=== PATIENT | female | born 1940 | race Caucasian/White ===

== ENCOUNTER 2016-10-10 13:57 | Observation (INO) | payer BC ==
[~2016-10-10] VITALS: Ht 149.9 cm; Wt 60.8 kg
[~2016-10-10 13:57] MED LIST: ACET325T21 PO; AMLO5TAB2 PO; CETI10TA16 PO; LOSA50TA6 PO; MECL12.52 PO; METO25TA4 PO; NITR0.4T22 SL; PANT40TA3 PO
[2016-10-10 16:09] VITALS: BP 135/66
[2016-10-10] MEDS ORDERED: ACETAMINOPHEN 325 MG TABLET. PO PRN (16:30)
[2016-10-10] MEDS ORDERED: MAGNESIUM HYDROXIDE 2,400 MG/30 ML ORAL.SUSP. PO PRN (16:30)
[2016-10-10] MEDS: IV DEXTROSE 5 %-0.45 % NACL 1,000 ML IV SCH (17:17)
[2016-10-10 18:09] LABS: BASO % 0 % (0-3); EOS % 0 % (0-3); HEMOGLOBIN 11.1 g/dL (12.0-15.5); LYMPH # 1.4 x10^3/uL (1.0-4.8); LYMPH % 11 % (24-48); MEAN CORPUSCULAR HEMOGLOBIN 31 pg (25-35); MEAN CORPUSCULAR HGB CONC 33 g/dL (31-37); MEAN CORPUSCULAR VOLUME 94 fL (79-100); MONO % 4 % (0-9); NEUT % 86 % (31-73); PLATELET COUNT 211 x10^3/uL (140-400); RED BLOOD COUNT 3.63 x10^6/uL (3.50-5.40); RED CELL DISTRIBUTION WIDTH 13.4 % (11.5-14.5); WHITE BLOOD COUNT 13.4 x10^3/uL (4.0-11.0)
[2016-10-10 18:31] LABS: PLT ESTIMATE ADEQUATE (ADEQUATE)
[2016-10-10 18:37] LABS: ALBUMIN 2.5 g/dL (3.4-5.0); ALBUMIN/GLOBULIN RATIO 0.7 (1.0-1.7); CALCIUM 9.1 mg/dL (8.5-10.1); CREATININE 1.7 mg/dL (0.6-1.0); GFR 29.4; POTASSIUM 3.4 mmol/L (3.5-5.1); TOTAL BILIRUBIN 0.5 mg/dL (0.2-1.0); TOTAL PROTEIN 6.3 g/dL (6.4-8.2)
[2016-10-10 19:00] VITALS: BP 129/61
[2016-10-10] MEDS ORDERED: PNEUMOCOCCAL VAX SCREEN BY RX. MC ONE (19:30)
[2016-10-10 20:10] LABS: BILIRUBIN,URINE NEGATIVE (NEG); GLUCOSE,URINE NEGATIVE (NEG); NITRITE,URINE NEGATIVE (NEG); PH,URINE 5.5; PROTEIN,URINE NEGATIVE (NEG-TRACE); UROBILINOGEN,URINE 0.2 mg/dL (0.2 mg/dL)
[2016-10-10 20:20] LABS: BACTERIA,URINE FEW /HPF (0-FEW); RBC,URINE 0 /HPF (0-2); SQUAMOUS EPITHELIAL CELL,UR FEW /LPF
[2016-10-10] MEDS: ACETAMINOPHEN 325 MG TABLET. PO PRN (21:15)
[2016-10-10] MEDS: METOPROLOL TART IMMED RELEASE 25 MG TABLET. PO SCH (21:15)
[2016-10-10 23:00] VITALS: BP 100/48
[2016-10-11 02:37] VITALS: BP 111/56
[2016-10-11] MEDS: IV DEXTROSE 5 %-0.45 % NACL 1,000 ML IV SCH ×2 (04:53→20:53)
[2016-10-11 06:04] LABS: BASO % 0 % (0-3); EOS % 1 % (0-3); HEMATOCRIT 32.9 % (36.0-47.0); HEMOGLOBIN 10.8 g/dL (12.0-15.5); LYMPH # 1.9 x10^3/uL (1.0-4.8); LYMPH % 19 % (24-48); MEAN CORPUSCULAR HEMOGLOBIN 31 pg (25-35); MEAN CORPUSCULAR HGB CONC 33 g/dL (31-37); MEAN CORPUSCULAR VOLUME 94 fL (79-100); MONO % 4 % (0-9); NEUT % 77 % (31-73); PLATELET COUNT 226 x10^3/uL (140-400); RED BLOOD COUNT 3.51 x10^6/uL (3.50-5.40); RED CELL DISTRIBUTION WIDTH 13.3 % (11.5-14.5); WHITE BLOOD COUNT 10.1 x10^3/uL (4.0-11.0)
[2016-10-11 06:19] LABS: CREATININE 1.4 mg/dL (0.6-1.0); GFR 36.8; POTASSIUM 3.2 mmol/L (3.5-5.1)
[2016-10-11 07:00] VITALS: BP 115/50
[2016-10-11] MEDS: METOPROLOL TART IMMED RELEASE 25 MG TABLET. PO SCH ×2 (07:51→20:52)
--- NOTE | 2016-10-11 09:12 | RAD ---
Indication weakness and fever. Protocol study. A single view of the chest was obtained and is compared to an examination 09/21/2014. There is mild cardiomegaly similar to the previous exam. There is no congestive heart failure. There is no focal infiltrate. Some minimal atelectasis is seen at the right lung base. There is no pleural fluid or pneumothorax. IMPRESSION: No acute or focal process in the chest. No significant change
--- NOTE | 2016-10-11 10:08 | PDOC2 ---
IM Consult Referring physician Dr Estrella for fever, weakness Date of Admission DATE: 10/11/16 TIME: 10:05 Chief Complaint Chief Complaint 76 yo wf admitted for h/o fever, n/v, weakness, not feeling well. Also all jts in body are hurting says. No fever, here, did have leukocytosis, cxr neg, no urinary sy. Problems: Past Medical History Cardiovascular: CAD CENTRAL NERVOUS SYSTEM: CVA, Other GI: GERD Heme/Onc: Anemia NOS Rheumatologic: Rheumatoid arthritis Renal/: Other Past Surgical History Past Surgical History: Cataract Removal, Hysterectomy, Other Past Social History PSH denies smoking, etoh or drugs Review of Symptoms Review of Symptoms General ROS: positive for - Psychological ROS: negative Ophthalmic ROS: negative ENT ROS: negative Allergy and Immunology ROS: negative Hematology and Lymphatic: negative Endocrine ROS: negative Respiratory ROS: no cold, does have cough, no dyspnea. Cardiovascular ROS: no chest pain or dyspnea on exertion Gastrointestinal ROS: no abdominal pain, change in bowel habits, or black or bloody stools Genito-Urinary ROS: no dysuria, trouble voiding, or hematuria Musculoskeletal ROS: no pain Neurological ROS: negative Dermatological ROS: no rash Medications Current Medications Acetaminophen (Tylenol) 325 mg PRN Q4HRS PRN PO MILD PAIN / TEMP; Start at 16:30 Acetaminophen (Tylenol) 650 mg PRN Q4HRS PRN PO MILD PAIN / TEMP Last administered on 10/10/16 21:15; Start 10/10/16 at 16:30 Dextrose/Sodium Chloride 1,000 ml @ 75 mls/hr [id number] IV Last administered on 10/11/16 04:53; Start 10/10/16 at 16:30 Magnesium Hydroxide (Milk Of Magnesia) 2,400 mg PRN DAILY PRN PO CONSTIPATION; Start 10/10/16 at 16:30 Metoprolol Tartrate (Lopressor) 25 mg BID PO Last administered on 10/11/16 07: 51; Start 10/10/16 at 21:00 Pneumococcal Polyvalent Vaccine (Do NOT chart on this placeholder) 0.5 each 1X ONCE [facility] ; Start 10/10/16 at 19:30; Stop 10/10/16 at 19:31; Status UNV Allergy Allergies Coded Allergies Type Severity Reaction Last Updated Verified Cephalosporins Allergy Intermediate Hives 10/22/13 Yes Penicillins Allergy Intermediate 10/22/13 No Sulfa (Sulfonamide Antibiotics) Allergy Intermediate 10/22/13 No atorvastatin Allergy Intermediate 10/22/13 No cephalexin Allergy Intermediate 10/22/13 Yes diltiazem Allergy Intermediate 10/22/13 No doxycycline Allergy Intermediate 10/22/13 No erythromycin base Allergy Intermediate 10/22/13 No ezetimibe Allergy Intermediate 10/22/13 No levofloxacin Allergy Intermediate 10/22/13 No lisinopril Allergy Intermediate 10/22/13 Yes olmesartan Allergy Intermediate 10/22/13 Yes pantoprazole Allergy Intermediate 09/21/14 No Physical Exam Physical Exam General appearance - alert,well appearing, and in no distress and oriented to person, place, and time Mental Status - alert, oriented to person, place, and time, affect appropriate to mood Head - normal Chest - clear to auscultation, no wheezes, rales or rhonchi, symmetric air entry Heart - S1 and S2 normal Abdomen - soft, nontender, nondistended, no masses or organomegaly Neurological - alert and oriented Musculoskeletal - no muscular tenderness noted Extremities - no pedal edema Skin - warm and dry Labs Laboratory Tests Test 10/10/16 17:45 10/10/16 19:57 10/11/16 05:08 White Blood Count 13.4 x10^3/uL (4.0-11.0) 10.1 x10^3/uL (4.0-11.0) Red Blood Count 3.63 x10^6/uL (3.50-5.40) 3.51 x10^6/uL (3.50-5.40) Hemoglobin 11.1 g/dL (12.0-15.5) 10.8 g/dL (12.0-15.5) Hematocrit 34.0 % (36.0-47.0) 32.9 % (36.0-47.0) Mean Corpuscular Volume 94 fL (79-100) 94 fL (79-100) Mean Corpuscular Hemoglobin 31 pg (25-35) 31 pg (25-35) Mean Corpuscular Hemoglobin Concent 33 g/dL (31-37) 33 g/dL (31-37) Red Cell Distribution Width 13.4 % (11.5-14.5) 13.3 % (11.5-14.5) Platelet Count 211 x10^3/uL (140-400) 226 x10^3/uL (140-400) Neutrophils (%) (Auto) 86 % (31-73) 77 % (31-73) Lymphocytes (%) (Auto) 11 % (24-48) 19 % (24-48) Monocytes (%) (Auto) 4 % (0-9) 4 % (0-9) Eosinophils (%) (Auto) 0 % (0-3) 1 % (0-3) Basophils (%) (Auto) 0 % (0-3) 0 % (0-3) Neutrophils # (Auto) 11.5 x10^3uL (1.8-7.7) 7.7 x10^3uL (1.8-7.7) Lymphocytes # (Auto) 1.4 x10^3/uL (1.0-4.8) 1.9 x10^3/uL (1.0-4.8) Monocytes # (Auto) 0.5 x10^3/uL (0.0-1.1) 0.4 x10^3/uL (0.0-1.1) Eosinophils # (Auto) 0.0 x10^3/uL (0.0-0.7) 0.1 x10^3/uL (0.0-0.7) Basophils # (Auto) 0.0 x10^3/uL (0.0-0.2) 0.0 x10^3/uL (0.0-0.2) Segmented Neutrophils % 86 % (35-66) Lymphocytes % 11 % (24-48) Monocytes % 3 % (0-10) Platelet Estimate Adequate (ADEQUATE) Sodium Level 130 mmol/L (136-145) 136 mmol/L (136-145) Potassium Level 3.4 mmol/L (3.5-5.1) 3.2 mmol/L (3.5-5.1) Chloride Level 97 mmol/L (98-107) 101 mmol/L (98-107) Carbon Dioxide Level 24 mmol/L (21-32) 26 mmol/L (21-32) Anion Gap 9 (6-14) 9 (6-14) Blood Urea Nitrogen 22 mg/dL (7-20) 22 mg/dL (7-20) Creatinine 1.7 mg/dL (0.6-1.0) 1.4 mg/dL (0.6-1.0) Estimated GFR (Cockcroft-Gault) 29.4 36.8 BUN/Creatinine Ratio 13 (6-20) Glucose Level 137 mg/dL (70-99) 92 mg/dL (70-99) Calcium Level 9.1 mg/dL (8.5-10.1) 9.0 mg/dL (8.5-10.1) Total Bilirubin 0.5 mg/dL (0.2-1.0) Aspartate Amino Transf (AST/SGOT) 8 U/L (15-37) Alanine Aminotransferase (ALT/SGPT) 13 U/L (14-59) Alkaline Phosphatase 130 U/L (46-116) Total Protein 6.3 g/dL (6.4-8.2) Albumin 2.5 g/dL (3.4-5.0) Albumin/Globulin Ratio 0.7 (1.0-1.7) Urine Collection Type Void Urine Color Yellow Urine Clarity Clear Urine pH 5.5 Urine Specific [place] 1.010 Urine Protein Negative mg/dL (NEG-TRACE) Urine Glucose (UA) Negative mg/dL (NEG) Urine Ketones (Stick) Negative mg/dL (NEG) Urine Blood Negative (NEG) Urine Nitrite Negative (NEG) Urine Bilirubin Negative (NEG) Urine Urobilinogen Dipstick 0.2 mg/dL (0.2 mg/dL) Urine Leukocyte Esterase Moderate (NEG) Urine RBC 0 /HPF (0-2) Urine WBC 11-20 /HPF (0-4) Urine Squamous Epithelial Cells Few /LPF Urine Bacteria Few /HPF (0-FEW) Urine Hyaline Casts Occasional /HPF Urine Mucus Slight /LPF Laboratory Tests Test 10/10/16 17:45 10/10/16 19:57 10/11/16 05:08 White Blood Count 13.4 x10^3/uL (4.0-11.0) 10.1 x10^3/uL (4.0-11.0) Red Blood Count 3.63 x10^6/uL (3.50-5.40) 3.51 x10^6/uL (3.50-5.40) Hemoglobin 11.1 g/dL (12.0-15.5) 10.8 g/dL (12.0-15.5) Hematocrit 34.0 % (36.0-47.0) 32.9 % (36.0-47.0) Mean Corpuscular Volume 94 fL (79-100) 94 fL (79-100) Mean Corpuscular Hemoglobin 31 pg (25-35) 31 pg (25-35) Mean Corpuscular Hemoglobin Concent 33 g/dL (31-37) 33 g/dL (31-37) Red Cell Distribution Width 13.4 % (11.5-14.5) 13.3 % (11.5-14.5) Platelet Count 211 x10^3/uL (140-400) 226 x10^3/uL (140-400) Neutrophils (%) (Auto) 86 % (31-73) 77 % (31-73) Lymphocytes (%) (Auto) 11 % (24-48) 19 % (24-48) Monocytes (%) (Auto) 4 % (0-9) 4 % (0-9) Eosinophils (%) (Auto) 0 % (0-3) 1 % (0-3) Basophils (%) (Auto) 0 % (0-3) 0 % (0-3) Neutrophils # (Auto) 11.5 x10^3uL (1.8-7.7) 7.7 x10^3uL (1.8-7.7) Lymphocytes # (Auto) 1.4 x10^3/uL (1.0-4.8) 1.9 x10^3/uL (1.0-4.8) Monocytes # (Auto) 0.5 x10^3/uL (0.0-1.1) 0.4 x10^3/uL (0.0-1.1) Eosinophils # (Auto) 0.0 x10^3/uL (0.0-0.7) 0.1 x10^3/uL (0.0-0.7) Basophils # (Auto) 0.0 x10^3/uL (0.0-0.2) 0.0 x10^3/uL (0.0-0.2) Segmented Neutrophils % 86 % (35-66) Lymphocytes % 11 % (24-48) Monocytes % 3 % (0-10) Platelet Estimate Adequate (ADEQUATE) Sodium Level 130 mmol/L (136-145) 136 mmol/L (136-145) Potassium Level 3.4 mmol/L (3.5-5.1) 3.2 mmol/L (3.5-5.1) Chloride Level 97 mmol/L (98-107) 101 mmol/L (98-107) Carbon Dioxide Level 24 mmol/L (21-32) 26 mmol/L (21-32) Anion Gap 9 (6-14) 9 (6-14) Blood Urea Nitrogen 22 mg/dL (7-20) 22 mg/dL (7-20) Creatinine 1.7 mg/dL (0.6-1.0) 1.4 mg/dL (0.6-1.0) Estimated GFR (Cockcroft-Gault) 29.4 36.8 BUN/Creatinine Ratio 13 (6-20) Glucose Level 137 mg/dL (70-99) 92 mg/dL (70-99) Calcium Level 9.1 mg/dL (8.5-10.1) 9.0 mg/dL (8.5-10.1) Total Bilirubin 0.5 mg/dL (0.2-1.0) Aspartate Amino Transf (AST/SGOT) 8 U/L (15-37) Alanine Aminotransferase (ALT/SGPT) 13 U/L (14-59) Alkaline Phosphatase 130 U/L (46-116) Total Protein 6.3 g/dL (6.4-8.2) Albumin 2.5 g/dL (3.4-5.0) Albumin/Globulin Ratio 0.7 (1.0-1.7) Urine Collection Type Void Urine Color Yellow Urine Clarity Clear Urine pH 5.5 Urine Specific [place] 1.010 Urine Protein Negative mg/dL (NEG-TRACE) Urine Glucose (UA) Negative mg/dL (NEG) Urine Ketones (Stick) Negative mg/dL (NEG) Urine Blood Negative (NEG) Urine Nitrite Negative (NEG) Urine Bilirubin Negative (NEG) Urine Urobilinogen Dipstick 0.2 mg/dL (0.2 mg/dL) Urine Leukocyte Esterase Moderate (NEG) Urine RBC 0 /HPF (0-2) Urine WBC 11-20 /HPF (0-4) Urine Squamous Epithelial Cells Few /LPF Urine Bacteria Few /HPF (0-FEW) Urine Hyaline Casts Occasional /HPF Urine Mucus Slight /LPF Vitals Vital Signs Date Time Temp Pulse Resp B/P (MAP) Pulse Ox O2 Delivery O2 Flow Rate FiO2 10/11/16 08:00 Room Air 10/11/16 07:51 85 115/50 10/11/16 07:00 97.9 19 95 97.9 Assessment Assessment ? Viral illness Bronchitis Body ache Fever at home CAD Multiple antibiotic allergies Plan Plan no antibiotics supportive care procalcitonin check cultures ALLAN HARLEY MD Oct 11, 2016 10:08
[2016-10-11 11:00] VITALS: BP 156/64
[2016-10-11] MEDS ORDERED: LACTULOSE 20 GM/30 ML SOLUTION. PO ONE ×2 (12:00→14:00)
--- NOTE | 2016-10-11 12:25 | PDOC ---
Provider Note Provider Note history and physical dictated # [id number] MIRI MADRIGAL MD Oct 11, 2016 12:25
[2016-10-11] MEDS ORDERED: POTASSIUM CHLORIDE 20 MEQ TABLET.ER. PO ONE (13:00)
[2016-10-11] MEDS: LOSARTAN POTASSIUM 50 MG TABLET. PO SCH (13:04)
[2016-10-11] MEDS: ACETAMINOPHEN 325 MG TABLET. PO PRN ×2 (13:43→20:54)
--- NOTE | 2016-10-11 14:28 | EKG ---
[facility] [address] [place] [address] Test Date: 2016-10-11 Test Time: 08:40:43 Pat Name: KANNAN BALDWIN Department: Room: 506 1 Gender: F [employer] Manager: MONICA : 1940 Requested By: MIRI MADRIGAL Order Number: [id number] Reading MD: Measurements Intervals [place] Rate: 69 P: 0 OR: 156 QRS: -7 QRSD: 86 T: 17 QT: 400 QTc: 430 Interpretive Statements SINUS RHYTHM LEFTWARD AXIS QRS(T) CONTOUR ABNORMALITY CONSIDER ANTEROLATERAL MYOCARDIAL DAMAGE ST & T ABNORMALITY, CONSIDER ANTEROSEPTAL ISCHEMIA OR LEFT VENTRICULAR STRAIN ABNORMAL ECG RI6.01 Compared to ECG 09/21/2014 20:40:56 T-wave abnormality now present Possible ischemia now present Myocardial infarct finding no longer present
[2016-10-11 15:00] VITALS: BP 105/61
--- NOTE | 2016-10-11 15:30 | RAD ---
Indication persistent cough. Noncontrast imaging through the chest was performed. Note is made of a previous examination almost 11 years ago. There is a low-density" mass" in the area of the dottie hepatis. This probably represents the portal vein itself. A mass at the head of the pancreas is felt less likely but is not entirely excluded on the basis of this exam. A contrast examination of the abdomen should be considered. There are some benign-appearing calcifications adjacent to the gallbladder similar to the prior study. Acute finding in the upper abdomen is not seen. No acute or significant finding is seen mediastinum. There is a small hiatus hernia. There is volume loss at the lung bases likely reflecting pleural-parenchymal scarring. Pneumonia is felt much less likely. A definite consolidated pneumonia in either lung is not seen. There is no dominant soft tissue mass in the chest. An acute finding is not apparent. IMPRESSION: Volume loss at the lung bases likely reflecting atelectasis or pleural-parenchymal scarring. An inflammatory component at the lung bases is not entirely excluded but is felt much less likely. Acute finding in the chest is not definitely seen. Probably prominent portal vein in the area of the portal hepatus. A low-density mass associated with the head of the pancreas is not entirely excluded. A CT examination of the abdomen, with IV contrast, should be considered PQRS Compliance Statement: One or more of the following individualized dose reduction techniques were utilized for this examination: 1. Automated exposure control 2. Adjustment of the mA and/or kV according to patient size 3. Use of iterative reconstruction technique
[2016-10-11 19:00] VITALS: BP 123/57
--- NOTE | 2016-10-11 20:17 | HP ---
ADMIT DATE: 10/10/2016 ROOM NUMBER: [id number]. HISTORY OF PRESENT ILLNESS: The patient is a 76-year-old white female with history of hypertension, coronary artery disease and chronic kidney disease stage 3, who was seen in the office on 10/10/2016 with a 3-day history of bilateral ankle, knee, hip, hands and shoulder pain as well as lower back and neck pain and fever of 100.8 the night before, had occasional dry cough. Denied any dysuria or diarrhea. She vomited once last Saturday and also on Saturday. She had a decreased appetite. Her last bowel movement was like 5 days prior to admission. She denied any chills. She had a sore throat yesterday, which has improved. PHYSICAL EXAMINATION: VITAL SIGNS: The temperature is 97.5 degrees, apical pulse 78, respiratory rate 19, blood pressure 156/64, oxygen saturation 96% on room air. HEENT: Eyes: Gaze is conjugate. Extraocular muscles are intact. Mouth: Tongue is midline. Throat yesterday in the office on examination was negative, was not red. NECK: Today, there is no cervical lymphadenopathy. HEART: Reveals an S1 and S2. There is no S3 or murmur. LUNGS: Clear. She had a frequent dry cough. ABDOMEN: Soft and nontender. EXTREMITIES: Lower extremities without edema. SKIN: No rashes. LABORATORY DATA: The white count was elevated at 13.4 yesterday, today it is 10.1; hemoglobin 11.1 yesterday; platelet count was 211,000. She had 86 polys and 11 lymphocytes yesterday; today, it is 77 polys and 19 lymphocytes. Her sodium is low at 130 yesterday, it was normal today at 136; potassium low at 3.4 yesterday, 3.2 today; chloride 97; total CO2 was 24; BUN 22 and creatinine 1.7 yesterday, today it is 22 and 1.4 respectively with a blood sugar of 137 and 92 today, alkaline phosphatase 130, albumin 2.5, procalcitonin was increased at 5.99. Urinalysis showed 11-20 white cells and no red blood cells. IMAGING DATA: She had a chest x-ray that showed no acute abnormality. The electrocardiogram was ordered but apparently not done. ASSESSMENT: 1. Generalized weakness. 2. Dehydration. 3. Acute kidney injury on top of chronic kidney disease stage 3, most likely secondary to dehydration. 4. Hyponatremia, which is resolved. 5. Hypokalemia. 6. Leukocytosis. 7. Arthralgias. 8. Acute bronchitis, rule out pneumonia. 9. Hypertension. 10. Coronary artery disease. 11. Pyuria. PLAN: Plan at this time is to continue with her IV fluids, but we will decrease rate to mL an hour. We will advance her diet from liquids to soft solids. We will get a CAT scan of the chest without IV contrast to rule out pneumonia. She also has pyuria, which can be added to the diagnosis and wait for the urine culture results. She has been seen by the Infectious Disease doctor who recommend holding off on antibiotics for the time being due to her multiple antibiotic allergies. She does feel a little bit better today. We will restart her losartan, but will hold off on the amlodipine and we will continue the metoprolol. Recheck her labs again tomorrow and wait for blood culture results and also urine culture results, and we will order SCDs for deep vein thrombosis prophylaxis. EKG was ordered. We will get a CAT scan of the chest without contrast as mentioned to rule out pneumonia. Physical and occupational therapy has also been ordered. MIRI MADRIGAL MD DR: NICOLE/alexandre JOB#: [id number] / [id number]
[2016-10-11 22:52] VITALS: BP 111/58
--- NOTE | 2016-10-12 02:23 | ACF ---
Admission Forms Criteria HYPONATREMIA; HYPERNATREMIA; HYPOKALEMIA; HYPERKALEMIA; HYPOCALCEMIA; HYPERCALCEMIA Clinical Indications for Inpatient Care (Place 'X' for any and all applicable criteria): Ongoing inpatient care may be indicated for ANY ONE of the following [G](1)(2)(3 )(5): [X]I. Hyponatremia with ANY ONE of the following: [X]a) Sodium less than 130 mEq/L (mmol/L) (new) (6)(22) [ ]b) Sodium less than 135 mEq/L (mmol/L) with ANY ONE of the following: [ ]i) Severe medical etiology requiring inpatient management (eg, heart failure, hypovolemia) [ ]ii) Altered mental status [ ]iii) Seizures [ ]II. Hypernatremia with ANY ONE of the following: [ ]a) Sodium greater than 155 mEq/L (mmol/L) [ ]b) Sodium greater than 150 mEq/L (mmol/L) with ANY ONE of the following: [ ] i) Altered mental status [ ]ii) Seizures [ ]iii) Severe medical etiology (eg, hypovolemia, diabetes insipidus) [ ]iv) Severe weakness [ ]v) Severe medical etiology (eg, hemolysis, infection, drug overdose) [ ]III. Hypokalemia with ANY ONE of the following: [ ]a) Potassium less than 2.5 mEq/L (mmol/L) despite outpatient and emergency treatment [ ]b) Potassium less than 3.0 mEq/L (mmol/L) with ANY ONE of the following: [ ]i) Weakness [ ]ii) Cardiac abnormality (eg, arrhythmia, conduction disturbance) [ ]iii) Cardiac ischemia [ ]iv) Ileus [ ]v) Ongoing medical cause requiring inpatient management. ( e.g., acute renal wasting, SIADH) [ ]vi) Other severe symptoms [ ] IV. Hyperkalemia with ANY ONE of the following: [ ]a) Potassium greater than 6.5 mEq/L (mmol/L) [ ]b) Potassium greater than 5 mEq/L (mmol/L) with ANY ONE of the following: [ ]i) Severe ECG findings [H] [ ]ii) Acute worsening of renal failure (creatinine greater than 2.5 mg/dL (221 micromoles/L) or significant elevation for age and size) [ ] V. Hypocalcemia with ANY ONE of the following: [ ]a) Calcium less than 7 mg/dL (1.75 mmol/L) despite outpatient and emergency treatment(19) [ ]b) Calcium less than 8 mg/dL (2 mmol/L) with significant symptoms or findings; examples include: [ ]i) Cardiac abnormality (eg, arrhythmia or conduction disturbance) [ ]ii) Altered mental status [ ]iii) Seizures [ ]iv) Breathing difficulty [ ]v) Muscle spasms [ ]. Hypercalcemia with ANY ONE of the following: [ ]a) Calcium greater than 14 mg/dL (3.5 mmol/L) [ ]b) Calcium greater than 12 mg/dL (3 mmol/L) with ANY ONE of the following: [ ]i) Significant dehydration or hypovolemia as indicated by ANY ONE of the following(2): [ ]1. Clinically significant dehydration as indicated by ANY ONE of the following: [ ]A. Acute loss of weight from baseline (5% of body weight in adults, 9% in pediatric patients) [ ]B. Hemodynamic instability [ ]C. Acute renal failure [ ]D. Serum sodium greater than 150 mEq/L (mmol/L) [ ]2) Dehydration that is persistent indicated by ALL of the following: [ ]A. Oral rehydration therapy not tolerated or insufficient to adequately correct dehydration [ ]B. Appropriate intravenous treatment (eg, fluids ) does not readily correct dehydration ie, after 12 to 24 hours of treatment) [ ]ii) Significant symptoms or findings; examples include: [ ]1) Altered mental status [ ]2) Cardiac abnormality (eg, arrhythmia, conduction disturbance) [ ]3) Cardiac abnormality (eg, arrhythmia, conduction disturbance) The original [facility] content created by [facility] has been revised. The portions of the content which have been revised are identified through the use of italic text or in bold, and [facility] has neither reviewed nor approved the modified material. All other unmodified content is copyright [facility] [employer] Please see references footnoted in the original [facility] [employer] edition 2016 Admission Criteria Met?: Yes SARA HAIRSTON Oct 12, 2016 02:23
[2016-10-12 03:00] VITALS: BP 114/56
[2016-10-12 04:25] LABS: BASO % 1 % (0-3); EOS % 2 % (0-3); HEMATOCRIT 29.8 % (36.0-47.0); HEMOGLOBIN 9.9 g/dL (12.0-15.5); LYMPH # 1.9 x10^3/uL (1.0-4.8); LYMPH % 37 % (24-48); MEAN CORPUSCULAR HEMOGLOBIN 32 pg (25-35); MEAN CORPUSCULAR HGB CONC 33 g/dL (31-37); MEAN CORPUSCULAR VOLUME 95 fL (79-100); MONO % 6 % (0-9); NEUT % 54 % (31-73); PLATELET COUNT 229 x10^3/uL (140-400); RED BLOOD COUNT 3.13 x10^6/uL (3.50-5.40); RED CELL DISTRIBUTION WIDTH 13.9 % (11.5-14.5); WHITE BLOOD COUNT 5.2 x10^3/uL (4.0-11.0)
[2016-10-12 04:40] LABS: CALCIUM 8.6 mg/dL (8.5-10.1); CREATININE 1.3 mg/dL (0.6-1.0); POTASSIUM 4.2 mmol/L (3.5-5.1)
[2016-10-12] MEDS: ACETAMINOPHEN 325 MG TABLET. PO PRN ×2 (07:12→17:38)
[2016-10-12 07:56] VITALS: BP 153/60
[2016-10-12] MEDS: METOPROLOL TART IMMED RELEASE 25 MG TABLET. PO SCH ×2 (08:20→21:13)
[2016-10-12] MEDS: LOSARTAN POTASSIUM 50 MG TABLET. PO SCH (08:21)
--- NOTE | 2016-10-12 09:19 | PDOC ---
Infectious Disease Note Subjective Subjective feeling good ROS ROS GEN: Denies fevers, chills, sweats HEENT: Denies blurred vision, sore throat CV: Denies chest pain RESP: Denies shortness of air, cough GI: Denies n/v/d NEURO: Denies confusion, dizziness MSK: Denies weakness, joint pain/swelling Vital Sign Vital Signs Vital Signs Date Time Temp Pulse Resp B/P (MAP) Pulse Ox O2 Delivery O2 Flow Rate FiO2 10/12/16 08:21 72 153/60 10/12/16 07:56 97.9 18 95 Room Air 97.9 Physical Exam PHYSICAL EXAM GENERAL: NAD, Alert HEENT: PERRL, OC/OP NECK: Supple, no JVD, no LN LUNGS: Clear HEART: S1S2, no gallop, no murmur ABD: Soft, NT, no organomegaly, no rebound EXT: No edema, no cyanosis PHOTO PRINTER: Alert, oriented x 3, no focal neurologic deficit SKIN: No rash IV: ok Labs Lab Laboratory Tests Test 10/12/16 03:45 10/12/16 04:00 White Blood Count 5.2 x10^3/uL (4.0-11.0) Red Blood Count 3.13 x10^6/uL (3.50-5.40) Hemoglobin 9.9 g/dL (12.0-15.5) Hematocrit 29.8 % (36.0-47.0) Mean Corpuscular Volume 95 fL (79-100) Mean Corpuscular Hemoglobin 32 pg (25-35) Mean Corpuscular Hemoglobin Concent 33 g/dL (31-37) Red Cell Distribution Width 13.9 % (11.5-14.5) Platelet Count 229 x10^3/uL (140-400) Neutrophils (%) (Auto) 54 % (31-73) Lymphocytes (%) (Auto) 37 % (24-48) Monocytes (%) (Auto) 6 % (0-9) Eosinophils (%) (Auto) 2 % (0-3) Basophils (%) (Auto) 1 % (0-3) Neutrophils # (Auto) 2.8 x10^3uL (1.8-7.7) Lymphocytes # (Auto) 1.9 x10^3/uL (1.0-4.8) Monocytes # (Auto) 0.3 x10^3/uL (0.0-1.1) Eosinophils # (Auto) 0.1 x10^3/uL (0.0-0.7) Basophils # (Auto) 0.0 x10^3/uL (0.0-0.2) Sodium Level 144 mmol/L (136-145) Potassium Level 4.2 mmol/L (3.5-5.1) Chloride Level 110 mmol/L (98-107) Carbon Dioxide Level 26 mmol/L (21-32) Anion Gap 8 (6-14) Blood Urea Nitrogen 13 mg/dL (7-20) Creatinine 1.3 mg/dL (0.6-1.0) Estimated GFR (Cockcroft-Gault) 40.0 Glucose Level 87 mg/dL (70-99) Calcium Level 8.6 mg/dL (8.5-10.1) Magnesium Level 1.9 mg/dL (1.8-2.4) Micro neg Objective Assessment ? Viral illness Bronchitis Body ache Fever at home CAD Multiple antibiotic allergies Plan Plan of Care cont off antibiotics ct abd pending ALLAN HARLEY MD Oct 12, 2016 09:19
--- NOTE | 2016-10-12 10:45 | PDOC ---
PROGRESS NOTES Subjective Subjective feels better. has a poor appetite.k ct chest neg for pneumonia but possible mass near head of pancreas, lab reviewed,. blood and urine cultures neg so far,. Objective Objective Vital Signs Date Time Temp Pulse Resp B/P (MAP) Pulse Ox O2 Delivery O2 Flow Rate FiO2 10/12/16 08:21 72 153/60 10/12/16 07:56 97.9 18 95 Room Air 97.9 Intake and Output 10/12/16 07:00 Intake Total 2575 ml Output Total 1750 ml Balance 825 ml Intake Oral 1600 ml IV Total 975 ml Output Urine Total 1750 ml # Voids 2 # Bowel Movements 1 Physical Exam Abdomen: Soft Heart: Regular rate, Normal S1, Normal S2 Extremities: No edema General: Alert HEENT: Atraumatic Lungs: Clear to auscultation Neuro: Normal speech Psych/Mental Status: Mental status NL Skin: No rashes Assessment Assessment 1. Generalized weakness. 2. Dehydration. resolved 3. Acute kidney injury resolved on top of chronic kidney disease stage 3 4. Hyponatremia, which is resolved. 5. Hypokalemia. resolved 6. Leukocytosis. resolved 7. Arthralgias. 8. Acute bronchitis, rule out pneumonia. 9. Hypertension. 10. Coronary artery disease. 11. Pyuria. urine culture neg so far poor appetite possible mass near head of pancrease Plan Plan of Care continue iv fluids to protect kidneys from iv contrast ct scan abdomen and pelvis with iv contrast lab tomorrow consider dismissal tomorrow if ct scan negative antibiotics per ID Comment Review of Relevant I have reviewed the following items rajinder (where applicable) has been applied. Labs Laboratory Tests Test 10/10/16 17:45 10/10/16 19:57 10/11/16 05:08 10/12/16 03:45 White Blood Count 13.4 x10^3/uL (4.0-11.0) 10.1 x10^3/uL (4.0-11.0) 5.2 x10^3/uL (4.0-11.0) Red Blood Count 3.63 x10^6/uL (3.50-5.40) 3.51 x10^6/uL (3.50-5.40) 3.13 x10^6/uL (3.50-5.40) Hemoglobin 11.1 g/dL (12.0-15.5) 10.8 g/dL (12.0-15.5) 9.9 g/dL (12.0-15.5) Hematocrit 34.0 % (36.0-47.0) 32.9 % (36.0-47.0) 29.8 % (36.0-47.0) Mean Corpuscular Volume 94 fL (79-100) 94 fL (79-100) 95 fL (79-100) Mean Corpuscular Hemoglobin 31 pg (25-35) 31 pg (25-35) 32 pg (25-35) Mean Corpuscular Hemoglobin Concent 33 g/dL (31-37) 33 g/dL (31-37) 33 g/dL (31-37) Red Cell Distribution Width 13.4 % (11.5-14.5) 13.3 % (11.5-14.5) 13.9 % (11.5-14.5) Platelet Count 211 x10^3/uL (140-400) 226 x10^3/uL (140-400) 229 x10^3/uL (140-400) Neutrophils (%) (Auto) 86 % (31-73) 77 % (31-73) 54 % (31-73) Lymphocytes (%) (Auto) 11 % (24-48) 19 % (24-48) 37 % (24-48) Monocytes (%) (Auto) 4 % (0-9) 4 % (0-9) 6 % (0-9) Eosinophils (%) (Auto) 0 % (0-3) 1 % (0-3) 2 % (0-3) Basophils (%) (Auto) 0 % (0-3) 0 % (0-3) 1 % (0-3) Neutrophils # (Auto) 11.5 x10^3uL (1.8-7.7) 7.7 x10^3uL (1.8-7.7) 2.8 x10^3uL (1.8-7.7) Lymphocytes # (Auto) 1.4 x10^3/uL (1.0-4.8) 1.9 x10^3/uL (1.0-4.8) 1.9 x10^3/uL (1.0-4.8) Monocytes # (Auto) 0.5 x10^3/uL (0.0-1.1) 0.4 x10^3/uL (0.0-1.1) 0.3 x10^3/uL (0.0-1.1) Eosinophils # (Auto) 0.0 x10^3/uL (0.0-0.7) 0.1 x10^3/uL (0.0-0.7) 0.1 x10^3/uL (0.0-0.7) Basophils # (Auto) 0.0 x10^3/uL (0.0-0.2) 0.0 x10^3/uL (0.0-0.2) 0.0 x10^3/uL (0.0-0.2) Segmented Neutrophils % 86 % (35-66) Lymphocytes % 11 % (24-48) Monocytes % 3 % (0-10) Platelet Estimate Adequate (ADEQUATE) Sodium Level 130 mmol/L (136-145) 136 mmol/L (136-145) 144 mmol/L (136-145) Potassium Level 3.4 mmol/L (3.5-5.1) 3.2 mmol/L (3.5-5.1) 4.2 mmol/L (3.5-5.1) Chloride Level 97 mmol/L (98-107) 101 mmol/L (98-107) 110 mmol/L (98-107) Carbon Dioxide Level 24 mmol/L (21-32) 26 mmol/L (21-32) 26 mmol/L (21-32) Anion Gap 9 (6-14) 9 (6-14) 8 (6-14) Blood Urea Nitrogen 22 mg/dL (7-20) 22 mg/dL (7-20) 13 mg/dL (7-20) Creatinine 1.7 mg/dL (0.6-1.0) 1.4 mg/dL (0.6-1.0) 1.3 mg/dL (0.6-1.0) Estimated GFR (Cockcroft-Gault) 29.4 36.8 40.0 BUN/Creatinine Ratio 13 (6-20) Glucose Level 137 mg/dL (70-99) 92 mg/dL (70-99) 87 mg/dL (70-99) Calcium Level 9.1 mg/dL (8.5-10.1) 9.0 mg/dL (8.5-10.1) 8.6 mg/dL (8.5-10.1) Total Bilirubin 0.5 mg/dL (0.2-1.0) Aspartate Amino Transf (AST/SGOT) 8 U/L (15-37) Alanine Aminotransferase (ALT/SGPT) 13 U/L (14-59) Alkaline Phosphatase 130 U/L (46-116) Total Protein 6.3 g/dL (6.4-8.2) Albumin 2.5 g/dL (3.4-5.0) Albumin/Globulin Ratio 0.7 (1.0-1.7) Urine Collection Type Void Urine Color Yellow Urine Clarity Clear Urine pH 5.5 Urine Specific [place] 1.010 Urine Protein Negative mg/dL (NEG-TRACE) Urine Glucose (UA) Negative mg/dL (NEG) Urine Ketones (Stick) Negative mg/dL (NEG) Urine Blood Negative (NEG) Urine Nitrite Negative (NEG) Urine Bilirubin Negative (NEG) Urine Urobilinogen Dipstick 0.2 mg/dL (0.2 mg/dL) Urine Leukocyte Esterase Moderate (NEG) Urine RBC 0 /HPF (0-2) Urine WBC 11-20 /HPF (0-4) Urine Squamous Epithelial Cells Few /LPF Urine Bacteria Few /HPF (0-FEW) Urine Hyaline Casts Occasional /HPF Urine Mucus Slight /LPF Procalcitonin 5.99 ng/mL (0.00-0.10) Test 10/12/16 04:00 Magnesium Level 1.9 mg/dL (1.8-2.4) Laboratory Tests Test 10/12/16 03:45 10/12/16 04:00 White Blood Count 5.2 x10^3/uL (4.0-11.0) Red Blood Count 3.13 x10^6/uL (3.50-5.40) Hemoglobin 9.9 g/dL (12.0-15.5) Hematocrit 29.8 % (36.0-47.0) Mean Corpuscular Volume 95 fL (79-100) Mean Corpuscular Hemoglobin 32 pg (25-35) Mean Corpuscular Hemoglobin Concent 33 g/dL (31-37) Red Cell Distribution Width 13.9 % (11.5-14.5) Platelet Count 229 x10^3/uL (140-400) Neutrophils (%) (Auto) 54 % (31-73) Lymphocytes (%) (Auto) 37 % (24-48) Monocytes (%) (Auto) 6 % (0-9) Eosinophils (%) (Auto) 2 % (0-3) Basophils (%) (Auto) 1 % (0-3) Neutrophils # (Auto) 2.8 x10^3uL (1.8-7.7) Lymphocytes # (Auto) 1.9 x10^3/uL (1.0-4.8) Monocytes # (Auto) 0.3 x10^3/uL (0.0-1.1) Eosinophils # (Auto) 0.1 x10^3/uL (0.0-0.7) Basophils # (Auto) 0.0 x10^3/uL (0.0-0.2) Sodium Level 144 mmol/L (136-145) Potassium Level 4.2 mmol/L (3.5-5.1) Chloride Level 110 mmol/L (98-107) Carbon Dioxide Level 26 mmol/L (21-32) Anion Gap 8 (6-14) Blood Urea Nitrogen 13 mg/dL (7-20) Creatinine 1.3 mg/dL (0.6-1.0) Estimated GFR (Cockcroft-Gault) 40.0 Glucose Level 87 mg/dL (70-99) Calcium Level 8.6 mg/dL (8.5-10.1) Magnesium Level 1.9 mg/dL (1.8-2.4) Microbiology 10/10/16 Blood Culture - Preliminary, Resulted NO GROWTH AFTER 1 DAY 10/10/16 Urine Culture - Preliminary, Resulted 10/10/16 Urine Culture Result 1 (AMAURI) - Preliminary, Resulted Medications Current Medications Dextrose/Sodium Chloride 1,000 ml @ 60 mls/hr [id number] IV Last administered on 10/11/16t 20:53; Start 10/10/16 at 16:30 Magnesium Hydroxide (Milk Of Magnesia) 2,400 mg PRN DAILY PRN PO CONSTIPATION; Start 10/10/16 at 16:30 Acetaminophen (Tylenol) 325 mg PRN Q4HRS PRN PO MILD PAIN / TEMP; Start at 16:30 Acetaminophen (Tylenol) 650 mg PRN Q4HRS PRN PO MILD PAIN / TEMP Last administered on 10/12/16 07:12; Start 10/10/16 at 16:30 Metoprolol Tartrate (Lopressor) 25 mg BID PO Last administered on 10/12/16 08: 20; Start 10/10/16 at 21:00 Pneumococcal Polyvalent Vaccine (Do NOT chart on this placeholder) 0.5 each 1X ONCE MC ; Start 10/10/16 at 19:30; Stop 10/10/16 at 19:31; Status UNV Lactulose 20 gm 1X ONCE PO Last administered on 10/11/16 11:39; Start at 12:00; Stop 10/11/16 at 12:01; Status DC Lactulose 20 gm 1X ONCE PO ; Start 10/11/16 at 14:00; Stop 10/11/16 at 14:01; Status DC Losartan Potassium (Cozaar) 100 mg DAILY PO Last administered on 10/12/16 08: 21; Start 10/11/16 at 13:00 Potassium Chloride (Klor-Con) 40 meq 1X ONCE PO Last administered on 13:04; Start 10/11/16 at 13:00; Stop 10/11/16 at 13:01; Status DC Active Scripts Active Reported Meclizine Hcl 12.5 Mg Tablet 1 Tab PO TID Protonix (Pantoprazole Sodium) 40 Mg Tablet.dr 40 Mg PO DAILY NITROGLYCERIN SubLingual (Nitroglycerin) 0.4 Mg Tab.subl 0.4 Mg SL PRN Q5MIN PRN Metoprolol Tartrate 25 Mg Tablet 25 Mg PO BID Losartan Potassium 50 Mg Tablet 50 Mg PO DAILY Cetirizine Hcl 10 Mg Tablet 10 Mg PO DAILY Amlodipine Besylate 5 Mg Tablet 5 Mg PO DAILY Acetaminophen 325 Mg Tablet 650 Mg PO PRN Q4HRS PRN Acetaminophen 325 Mg Tablet 325 Mg PO PRN Q4HRS PRN Vitals/I & O Vital Sign - Last 24 Hours 10/11/16 10/11/16 10/11/16 10/11/16 11:00 13:04 15:00 19:00 Temp 97.5 97.5 97.9 97.5 97.5 97.9 Pulse 78 78 87 88 Resp 19 19 18 B/P (MAP) 156/64 (94) 156/64 105/61 (76) 123/57 (79) Pulse Ox 96 97 94 O2 Delivery Room Air Room Air Room Air 10/11/16 10/11/16 10/11/16 10/12/16 20:00 20:52 22:52 03:00 Temp 97.9 97.5 97.9 97.5 Pulse 87 81 78 Resp 18 18 B/P (MAP) 105/61 111/58 (75) 114/56 (75) Pulse Ox 95 93 O2 Delivery Room Air Room Air Room Air 10/12/16 10/12/16 10/12/16 10/12/16 07:50 07:56 08:20 08:21 Temp 97.9 97.9 Pulse 72 72 72 Resp 18 B/P (MAP) 153/60 (91) 153/60 153/60 Pulse Ox 95 O2 Delivery Room Air Room Air Intake and Output 10/11/16 10/11/16 10/12/16 15:00 23:00 07:00 Intake Total 500 ml 2075 ml Output Total 450 ml 1300 ml Balance 500 ml 1625 ml -1300 ml MIRI MADRIGAL MD Oct 12, 2016 10:45
[2016-10-12 10:52] VITALS: BP 133/59
[2016-10-12] MEDS ORDERED: IOHEXOL 300 MG/ML 75 ML VIAL IV ONE (11:00)
--- NOTE | 2016-10-12 13:06 | RAD ---
INDICATION: Pancreatic mass. COMPARISON: 02/02/2011 TECHNIQUE: Axial CT images were obtained through the abdomen and pelvis with intravenous contrast. Coronal reformations were processed. FINDINGS: Linear opacities lower lungs, could be atelectasis or scarring. Severe calcific atherosclerosis. Partially calcified low-attenuation lesion is again seen within the liver measuring up to approximately 38 x 23 mm. Low-attenuation lesion within the pancreatic head measuring approximately 35 x 30 mm. No peripancreatic edema. Splenic calcified granulomas. No hydronephrosis. Mildly prominent right extrarenal pelvis. Subcentimeter low-attenuation right renal lesion. Too small to characterize. Bladder is partially distended. Colonic diverticulosis. The appendix does not appear grossly inflamed. No dilated loops of bowel suggest obstruction. Degenerative changes the spine with scoliotic curvature. IMPRESSION: 1. Low-attenuation lesion is identified within the pancreatic head. This could be secondary to a cystic lesion from causes such as intraductal papillary mucinous neoplasm or pseudocyst but would consider obtaining a pancreatic protocol MRI with and without contrast with MRCP images to further evaluate and ensure that there is not a more worrisome solid neoplastic component given the size of the lesion. 2. Repeat demonstration of low attenuation mass within the liver with some calcifications within. This could be further evaluated on MRI as well if one is obtained. Given that this appear to have been present in 2010 would favor benign causes. 3. There is some distention of the gallbladder identified. Would correlate with symptoms in the region if the patient is having symptoms and may be helpful to obtain an ultrasound to further evaluate. PQRS Compliance Statement: One or more of the following individualized dose reduction techniques were utilized for this examination: 1. Automated exposure control 2. Adjustment of the mA and/or kV according to patient size 3. Use of iterative reconstruction technique
[2016-10-12] MEDS: IV DEXTROSE 5 %-0.45 % NACL 1,000 ML IV SCH (14:39)
--- NOTE | 2016-10-12 14:50 | PDOC2 ---
GI CONSULT Reason For Consult: Pancreatic mass HPI: HPI: 76 y/o female admitted 10/10/16, pleasant and talkative. Tells me not feeling well since 10/08 after her weekly prayer meeting, "just didn't feel right." Lives in a trailer w/o air conditioning, but able to rest in one room with a window unit. Decreased appetite, vomiting x 2, fever 100.8. Awoke on 10/09, "every bone in my body hurt." Saw PCP, Dr. Estrella, on 10/10, admitted w/ dehydration. Has been on atbx per ID, feeling better w/ this and fluids. GI consult requested this afternoon re: finding of pancreatic head lesion on CT. MRCP has been ordered. Note LFTs okay, Alk Phos 130. Previous EGD w/ Dr. Culp in 09/2013 showed Schatzki's ring (dilated to 54Fr), hiatal hernia, and erosive esophagitis (cannot view pathology). Dr. Estrella's previous H&Ps note colonoscopy in 2007 revealed tubular adenoma, diverticulosis , and hemorrhoids. Has been told she has GERD but denies heartburn, reflux, dyspepsia. Home meds list pantoprazole which she denies. Avoids NSAIDs. No dysphagia, abd pain, hematochezia, melena. Has lost about 14 pounds this year, has "never been a good eater." Some diarrhea (loose or watery stools after eating) for 4-5 months. PMH: PMH: CAD, cardiomyopathy, CVA, HTN, HLD, CKD, headaches (head injury as a child), intracranial saccular aneurysms, Schatzki's ring, hiatal hernia, adenomatous colon polyp, diverticulosis, hemorrhoids, tonsillectomy, right shoulder surgery , hysterectomy, bladder suspension, cardiac cath, cataract removal, sinus surgery FH: Family History: Cancer (ovarian), DM, Other (ID, TB) Social History: Smoke: Quit ALCOHOL: none Drugs: None ROS: GEN: +fever HEENT: Denies blurred vision, sore throat CV: Denies chest pain RESP: Denies shortness of air, cough GI: Per HPI : Denies hematuria, dysuria ENDO: +weight loss NEURO: Denies confusion, dizziness MSK: +arthralgias SKIN: Denies jaundice, pruritus Vitals: Vitals: Vital Signs Date Time Temp Pulse Resp B/P (MAP) Pulse Ox O2 Delivery O2 Flow Rate FiO2 10/12/16 10:52 97.7 66 18 133/59 (83) 95 Room Air 97.7 Labs: Labs: Laboratory Tests Test 10/12/16 03:45 10/12/16 04:00 White Blood Count 5.2 x10^3/uL (4.0-11.0) Red Blood Count 3.13 x10^6/uL (3.50-5.40) Hemoglobin 9.9 g/dL (12.0-15.5) Hematocrit 29.8 % (36.0-47.0) Mean Corpuscular Volume 95 fL (79-100) Mean Corpuscular Hemoglobin 32 pg (25-35) Mean Corpuscular Hemoglobin Concent 33 g/dL (31-37) Red Cell Distribution Width 13.9 % (11.5-14.5) Platelet Count 229 x10^3/uL (140-400) Neutrophils (%) (Auto) 54 % (31-73) Lymphocytes (%) (Auto) 37 % (24-48) Monocytes (%) (Auto) 6 % (0-9) Eosinophils (%) (Auto) 2 % (0-3) Basophils (%) (Auto) 1 % (0-3) Neutrophils # (Auto) 2.8 x10^3uL (1.8-7.7) Lymphocytes # (Auto) 1.9 x10^3/uL (1.0-4.8) Monocytes # (Auto) 0.3 x10^3/uL (0.0-1.1) Eosinophils # (Auto) 0.1 x10^3/uL (0.0-0.7) Basophils # (Auto) 0.0 x10^3/uL (0.0-0.2) Sodium Level 144 mmol/L (136-145) Potassium Level 4.2 mmol/L (3.5-5.1) Chloride Level 110 mmol/L (98-107) Carbon Dioxide Level 26 mmol/L (21-32) Anion Gap 8 (6-14) Blood Urea Nitrogen 13 mg/dL (7-20) Creatinine 1.3 mg/dL (0.6-1.0) Estimated GFR (Cockcroft-Gault) 40.0 Glucose Level 87 mg/dL (70-99) Calcium Level 8.6 mg/dL (8.5-10.1) Magnesium Level 1.9 mg/dL (1.8-2.4) Allergies: Coded Allergies: Cephalosporins (Verified Allergy, Intermediate, Hives, 10/22/13) Penicillins (Unverified Allergy, Intermediate, 10/22/13) Sulfa (Sulfonamide Antibiotics) (Unverified Allergy, Intermediate, 10/22/13 ) atorvastatin (Unverified Allergy, Intermediate, 10/22/13) cephalexin (Verified Allergy, Intermediate, 10/22/13) diltiazem (Unverified Allergy, Intermediate, 10/22/13) doxycycline (Unverified Allergy, Intermediate, 10/22/13) erythromycin base (Unverified Allergy, Intermediate, 10/22/13) ezetimibe (Unverified Allergy, Intermediate, 10/22/13) levofloxacin (Unverified Allergy, Intermediate, 10/22/13) lisinopril (Verified Allergy, Intermediate, 10/22/13) olmesartan (Verified Allergy, Intermediate, 10/22/13) pantoprazole (Unverified Allergy, Intermediate, 09/21/14) Medications: Current Medications Medications (Trade) Dose Ordered Sig/Darren Route PRN Reason Start Time Stop Time Status Last Admin Dose Admin Iohexol (Omnipaque 300 Mg/ml) 55 ml 1X ONCE IV 10/12/16 11:00 10/12/16 11:01 DC 10/12/16 12:08 Imaging: Imaging: CXR IMPRESSION: No acute or focal process in the chest. No significant change. CT Chest IMPRESSION: Volume loss at the lung bases likely reflecting atelectasis or pleural-parenchymal scarring. An inflammatory component at the lung bases is not entirely excluded but is felt much less likely. Acute finding in the chest is not definitely seen. Probably prominent portal vein in the area of the portal hepatus. A low-density mass associated with the head of the pancreas is not entirely excluded. A CT examination of the abdomen, with IV contrast, should be considered. CT A/P IMPRESSION: 1. Low-attenuation lesion is identified within the pancreatic head. This could be secondary to a cystic lesion from causes such as intraductal papillary mucinous neoplasm or pseudocyst but would consider obtaining a pancreatic protocol MRI with and without contrast with MRCP images to further evaluate and ensure that there is not a more worrisome solid neoplastic component given the size of the lesion. 2. Repeat demonstration of low attenuation mass within the liver with some calcifications within. This could be further evaluated on MRI as well if one is obtained. Given that this appear to have been present in 2010 would favor benign causes. 3. There is some distention of the gallbladder identified. Would correlate with symptoms in the region if the patient is having symptoms and may be helpful to obtain an ultrasound to further evaluate. PE: GEN: NAD HEENT: Atraumatic, PERRL LUNGS: clear anteriorly HEART: RRR ABD: NABS, S/ND/NT EXTREMITY: No edema SKIN: No rashes, no jaundice NEURO/PSYCH: A & O 3 A/P: A/P: Abnormal CT A/P -pancreatic head lesion Myalgia, fever, n/v - resolved Decreased appetite, weight loss CRC screen, h/o adenomatous polyp -- Agree w/ MRCP. Will check [id number]. RUBA DEL ROSARIO Oct 12, 2016 14:50
[2016-10-12 14:56] VITALS: BP 151/74
[2016-10-12 19:00] VITALS: BP 132/78
[2016-10-12 23:00] VITALS: BP 122/57
[2016-10-13 03:00] VITALS: BP 131/69
[2016-10-13 05:37] LABS: BASO % 1 % (0-3); EOS % 4 % (0-3); HEMATOCRIT 31.4 % (36.0-47.0); HEMOGLOBIN 10.3 g/dL (12.0-15.5); LYMPH # 1.8 x10^3/uL (1.0-4.8); LYMPH % 46 % (24-48); MEAN CORPUSCULAR HEMOGLOBIN 31 pg (25-35); MEAN CORPUSCULAR HGB CONC 33 g/dL (31-37); MEAN CORPUSCULAR VOLUME 95 fL (79-100); MONO % 8 % (0-9); NEUT % 42 % (31-73); PLATELET COUNT 225 x10^3/uL (140-400); RED BLOOD COUNT 3.32 x10^6/uL (3.50-5.40); RED CELL DISTRIBUTION WIDTH 13.9 % (11.5-14.5)
[2016-10-13 05:50] LABS: CALCIUM 8.6 mg/dL (8.5-10.1); CREATININE 1.1 mg/dL (0.6-1.0); GFR 48.6
[2016-10-13] MEDS: IV DEXTROSE 5 %-0.45 % NACL 1,000 ML IV SCH (06:24)
[2016-10-13 07:55] VITALS: BP 142/63
[2016-10-13] MEDS: METOPROLOL TART IMMED RELEASE 25 MG TABLET. PO SCH (09:00)
[2016-10-13] MEDS: LOSARTAN POTASSIUM 50 MG TABLET. PO SCH (09:00)
--- NOTE | 2016-10-13 10:01 | DISCH ---
DISCHARGE INSTRUCTIONS Condition on Discharge Condition on Discharge: Stable Activity After Discharge Activity Instructions for Disc: Resume previous activity Diet after Discharge Diet after Discharge: Regular Contacting the DRAna after DC Call your doctor for: If your condition worsens Follow-Up Follow up with: dr. madrigal 10/16/16 MIRI MADRIGAL MD Oct 13, 2016 10:01
[2016-10-13] MEDS ORDERED: LOSA50TA2 PO (10:05)
--- NOTE | 2016-10-13 10:12 | PDOC ---
Provider Note Provider Note discharge summary dictated # [id number] MIRI MADRIGAL MD Oct 13, 2016 10:12
[2016-10-13 10:56] VITALS: BP 150/61
--- NOTE | 2016-10-13 12:28 | PDOC ---
G I PROGRESS NOTE Reason for Follow-up Cystic lesion, pancreas Subjective No complaints. Waiting for MRCP to be done. Physical Exam Lungs clear. RRR Abdomen soft, not tender nor distended. Review of Relevant I have reviewed the following items rajinder (where applicable) has been applied. Labs Laboratory Tests Test 10/12/16 03:45 10/12/16 04:00 10/13/16 04:45 White Blood Count 5.2 x10^3/uL (4.0-11.0) 4.0 x10^3/uL (4.0-11.0) Red Blood Count 3.13 x10^6/uL (3.50-5.40) 3.32 x10^6/uL (3.50-5.40) Hemoglobin 9.9 g/dL (12.0-15.5) 10.3 g/dL (12.0-15.5) Hematocrit 29.8 % (36.0-47.0) 31.4 % (36.0-47.0) Mean Corpuscular Volume 95 fL (79-100) 95 fL (79-100) Mean Corpuscular Hemoglobin 32 pg (25-35) 31 pg (25-35) Mean Corpuscular Hemoglobin Concent 33 g/dL (31-37) 33 g/dL (31-37) Red Cell Distribution Width 13.9 % (11.5-14.5) 13.9 % (11.5-14.5) Platelet Count 229 x10^3/uL (140-400) 225 x10^3/uL (140-400) Neutrophils (%) (Auto) 54 % (31-73) 42 % (31-73) Lymphocytes (%) (Auto) 37 % (24-48) 46 % (24-48) Monocytes (%) (Auto) 6 % (0-9) 8 % (0-9) Eosinophils (%) (Auto) 2 % (0-3) 4 % (0-3) Basophils (%) (Auto) 1 % (0-3) 1 % (0-3) Neutrophils # (Auto) 2.8 x10^3uL (1.8-7.7) 1.7 x10^3uL (1.8-7.7) Lymphocytes # (Auto) 1.9 x10^3/uL (1.0-4.8) 1.8 x10^3/uL (1.0-4.8) Monocytes # (Auto) 0.3 x10^3/uL (0.0-1.1) 0.3 x10^3/uL (0.0-1.1) Eosinophils # (Auto) 0.1 x10^3/uL (0.0-0.7) 0.1 x10^3/uL (0.0-0.7) Basophils # (Auto) 0.0 x10^3/uL (0.0-0.2) 0.0 x10^3/uL (0.0-0.2) Sodium Level 144 mmol/L (136-145) 144 mmol/L (136-145) Potassium Level 4.2 mmol/L (3.5-5.1) 4.0 mmol/L (3.5-5.1) Chloride Level 110 mmol/L (98-107) 109 mmol/L (98-107) Carbon Dioxide Level 26 mmol/L (21-32) 27 mmol/L (21-32) Anion Gap 8 (6-14) 8 (6-14) Blood Urea Nitrogen 13 mg/dL (7-20) 10 mg/dL (7-20) Creatinine 1.3 mg/dL (0.6-1.0) 1.1 mg/dL (0.6-1.0) Estimated GFR (Cockcroft-Gault) 40.0 48.6 Glucose Level 87 mg/dL (70-99) 89 mg/dL (70-99) Calcium Level 8.6 mg/dL (8.5-10.1) 8.6 mg/dL (8.5-10.1) Magnesium Level 1.9 mg/dL (1.8-2.4) Laboratory Tests Test 10/13/16 04:45 White Blood Count 4.0 x10^3/uL (4.0-11.0) Red Blood Count 3.32 x10^6/uL (3.50-5.40) Hemoglobin 10.3 g/dL (12.0-15.5) Hematocrit 31.4 % (36.0-47.0) Mean Corpuscular Volume 95 fL (79-100) Mean Corpuscular Hemoglobin 31 pg (25-35) Mean Corpuscular Hemoglobin Concent 33 g/dL (31-37) Red Cell Distribution Width 13.9 % (11.5-14.5) Platelet Count 225 x10^3/uL (140-400) Neutrophils (%) (Auto) 42 % (31-73) Lymphocytes (%) (Auto) 46 % (24-48) Monocytes (%) (Auto) 8 % (0-9) Eosinophils (%) (Auto) 4 % (0-3) Basophils (%) (Auto) 1 % (0-3) Neutrophils # (Auto) 1.7 x10^3uL (1.8-7.7) Lymphocytes # (Auto) 1.8 x10^3/uL (1.0-4.8) Monocytes # (Auto) 0.3 x10^3/uL (0.0-1.1) Eosinophils # (Auto) 0.1 x10^3/uL (0.0-0.7) Basophils # (Auto) 0.0 x10^3/uL (0.0-0.2) Sodium Level 144 mmol/L (136-145) Potassium Level 4.0 mmol/L (3.5-5.1) Chloride Level 109 mmol/L (98-107) Carbon Dioxide Level 27 mmol/L (21-32) Anion Gap 8 (6-14) Blood Urea Nitrogen 10 mg/dL (7-20) Creatinine 1.1 mg/dL (0.6-1.0) Estimated GFR (Cockcroft-Gault) 48.6 Glucose Level 89 mg/dL (70-99) Calcium Level 8.6 mg/dL (8.5-10.1) Microbiology 10/10/16 Blood Culture - Preliminary, Resulted NO GROWTH AFTER 2 DAYS 10/10/16 Urine Culture - Final, Complete 10/10/16 Urine Culture Result 1 (AMAURI) - Final, Complete Medications Current Medications Dextrose/Sodium Chloride 1,000 ml @ 60 mls/hr [id number] IV Last administered on 10/13/16t 06:24; Start 10/10/16 at 16:30; Stop 10/13/16 at 10:00; Status DC Magnesium Hydroxide (Milk Of Magnesia) 2,400 mg PRN DAILY PRN PO CONSTIPATION; Start 10/10/16 at 16:30 Acetaminophen (Tylenol) 325 mg PRN Q4HRS PRN PO MILD PAIN / TEMP; Start at 16:30 Acetaminophen (Tylenol) 650 mg PRN Q4HRS PRN PO MILD PAIN / TEMP Last administered on 10/12/16 17:38; Start 10/10/16 at 16:30 Metoprolol Tartrate (Lopressor) 25 mg BID PO Last administered on 10/12/16 21: 13; Start 10/10/16 at 21:00 Pneumococcal Polyvalent Vaccine (Do NOT chart on this placeholder) 0.5 each 1X ONCE MC ; Start 10/10/16 at 19:30; Stop 10/10/16 at 19:31; Status UNV Lactulose 20 gm 1X ONCE PO Last administered on 10/11/16 11:39; Start at 12:00; Stop 10/11/16 at 12:01; Status DC Lactulose 20 gm 1X ONCE PO ; Start 10/11/16 at 14:00; Stop 10/11/16 at 14:01; Status DC Losartan Potassium (Cozaar) 100 mg DAILY PO Last administered on 10/12/16 08: 21; Start 10/11/16 at 13:00 Potassium Chloride (Klor-Con) 40 meq 1X ONCE PO Last administered on 13:04; Start 10/11/16 at 13:00; Stop 10/11/16 at 13:01; Status DC Iohexol (Omnipaque 300 Mg/ml) 55 ml 1X ONCE IV Last administered on 10/12/16 12:08; Start 10/12/16 at 11:00; Stop 10/12/16 at 11:01; Status DC Active Scripts Active Cozaar (Losartan Potassium) 50 Mg Tablet 100 Mg PO DAILY 30 Days Reported Metoprolol Tartrate 25 Mg Tablet 25 Mg PO BID Acetaminophen 325 Mg Tablet 650 Mg PO PRN Q4HRS PRN Acetaminophen 325 Mg Tablet 325 Mg PO PRN Q4HRS PRN Vitals/I & O Vital Sign - Last 24 Hours 10/12/16 10/12/16 10/12/16 10/12/16 14:56 19:00 20:00 21:13 Temp 98.1 97.9 98.1 97.9 Pulse 68 85 85 Resp 18 19 B/P (MAP) 151/74 (99) 132/78 (96) 132/78 Pulse Ox 94 96 O2 Delivery Room Air Room Air Room Air 10/12/16 10/13/16 10/13/16 10/13/16 23:00 03:00 07:55 08:00 Temp 97.8 97.8 97.9 97.8 97.8 97.9 Pulse 70 67 74 Resp 19 19 18 B/P (MAP) 122/57 (78) 131/69 (89) 142/63 (89) Pulse Ox 97 95 97 O2 Delivery Room Air Room Air Room Air Room Air 10/13/16 10:56 Temp 97.5 97.5 Pulse 72 Resp 18 B/P (MAP) 150/61 (90) Pulse Ox 96 O2 Delivery Room Air Intake and Output 10/12/16 10/12/16 10/13/16 15:00 23:00 07:00 Intake Total 1140 ml 950 ml Balance 1140 ml 950 ml Images MRCP pending. Assessment Cystic lesion in pancreas, nature/significance unclear. Plan of Care Note Await MRCP. OK with me to go home and f/u as outpatient. MIRI BRIGGS MD Oct 13, 2016 12:28
[2016-10-13 14:59] VITALS: BP 157/94
--- NOTE | 2016-10-13 16:40 | RAD ---
EXAM: MRI ABDOMEN WITHOUT CONTRAST. HISTORY: Pancreatic mass. TECHNIQUE: MRI of the abdomen was performed without intravenous contrast. Three-dimensional reconstructions of the biliary tree were also performed. COMPARISON: None available. FINDINGS: There are limitations from motion artifact on some series. The examination remains diagnostic for the following. Liver: There is no significant steatosis. There are no suspicious hepatic lesions. Biliary tree: The gallbladder is unremarkable. The common duct is not dilated. A T2 hyperintense mass within the pancreatic head and uncinate process posteriorly appears cystic without contrast. It measures 3.7 x 2.9 x 3.8 cm. A communication with the pancreatic duct or biliary tree is not clearly seen. There is no clear communication with the adjacent duodenum. It displaces the common duct to the right mildly. The pancreatic duct is not dilated. There are no clearly suspicious pancreatic parenchymal lesions without contrast. Other findings: The kidneys, adrenal glands and spleen are unremarkable. IMPRESSION: 1. 3.8 x 3.7 cm cystic mass along the posterior aspect of the pancreatic head and uncinate process. This may represent a cyst, old pseudocyst, or pancreatic cystic neoplasm. There is no clear communication with the common duct to indicate a choledochal cyst. There is no clear communication with the duodenum to indicate a duodenal diverticulum. Comparison with prior CT is recommended when feasible. Postcontrast analysis could further exclude a solid component. Endoscopic ultrasound and fluid sampling could establish the diagnosis and assess benignity at this size. At least ongoing follow-up is recommended. Electronically signed by: Danish Garcia MD (10/13/2016 4:37 PM) [facility] [place]
--- NOTE | 2016-10-13 20:05 | DS ---
DATE OF DISCHARGE: 10/13/2016 CONSULTANTS: Dr. Kristian Villa, Dr. Raúl Fabian. FINAL DIAGNOSES: 1. Viral syndrome. 2. Generalized weakness. 3. Dehydration. 4. Hyponatremia. 5. Acute kidney injury on top of chronic kidney disease stage 3. 6. Hypokalemia. 7. Hyponatremia. 8. Leukocytosis. 9. Arthralgias. 10. Hypertension. 11. Coronary artery disease. 12. Pyuria, but the urine culture is negative. 13. Cystic mass in the head of the pancreas. HOSPITAL COURSE: The patient is a 76-year-old white female with a history of hypertension, coronary artery disease and chronic kidney disease stage 3 with a 3-day history of bilateral ankle knee, hip and shoulder pain as well as lower back pain, neck pain, and fever of 100.8 degrees the night before. Denied any dysuria. She vomited once on Saturday and Saturday and decreased appetite. Her last bowel movement was 5 days prior to admission. Denied any chills. She had a sore throat yesterday and throat exam was unremarkable and the sore throat resolved. She was admitted to the hospital and had blood and urine cultures that were negative, treated with IV antibiotics initially, seen by Dr. Kristian Villa from Infectious Disease. The patient underwent a CAT scan of the abdomen and pelvis and there was a cystic mass in the head of the pancreas and she had an MRCP ordered and CA 19-9, both of which were ordered and pending. She was seen by Dr. Raúl Fabian in consultation and discussed the case with him earlier today. She feels much better. She is eating and drinking. She is afebrile. Vital signs are stable and she is hungry this morning where she was not hungry yesterday. She received IV fluids and her acute kidney injury resolved. It is anticipated that she will be dismissed later today after the MRCP is done and she has an appointment to see me in the office on 10/16/2016. Wait for the results of the MRCP. She denies any abdominal pain. She will be dismissed on metoprolol tartrate 25 mg b.i.d. and also will be dismissed on Losartan 100 mg every day. She will follow up in the office this coming Saturday. RAÚL MADRIGAL MD DR: Beau JOB#: [id number] / [id number]
== END 2016-10-13 15:35 | disposition home or self-care (01) ==
LOC: INTOOBSV 14:37 → 5 NORTH 14:37
PROVIDERS: ADMIT Internal Medicine; ATTEND Internal Medicine
DX: B34.9 Viral infection, unspecified (principal); E86.0 Dehydration; E87.1 Hypo-osmolality and hyponatremia; E87.6 Hypokalemia; I12.9 Hypertensive chronic kidney disease with stage 1 through stage 4 chronic kidney disease, or unspecified chronic kidney disease; N18.3 Chronic kidney disease, stage 3 (moderate); D72.829 Elevated white blood cell count, unspecified; N17.9 Acute kidney failure, unspecified; M25.572 Pain in left ankle and joints of left foot; M25.571 Pain in right ankle and joints of right foot; M25.559 Pain in unspecified hip; M25.519 Pain in unspecified shoulder; M54.2 Cervicalgia; M54.5 Low back pain; I25.10 Atherosclerotic heart disease of native coronary artery without angina pectoris; N39.0 Urinary tract infection, site not specified; K86.2 Cyst of pancreas; I42.9 Cardiomyopathy, unspecified; E78.5 Hyperlipidemia, unspecified; K57.90 Diverticulosis of intestine, part unspecified, without perforation or abscess without bleeding; K64.9 Unspecified hemorrhoids; J20.9 Acute bronchitis, unspecified; K21.9 Gastro-esophageal reflux disease without esophagitis; K82.8 Other specified diseases of gallbladder; M06.9 Rheumatoid arthritis, unspecified; K44.9 Diaphragmatic hernia without obstruction or gangrene; Z87.891 Personal history of nicotine dependence; Z79.899 Other long term (current) drug therapy; Z86.73 Personal history of transient ischemic attack (TIA), and cerebral infarction without residual deficits; Z87.19 Personal history of other diseases of the digestive system; Z83.3 Family history of diabetes mellitus; Z80.41 Family history of malignant neoplasm of ovary
CPT/HCPCS: 36415; 71010; 71250; 74177; 74181; 80048; 80053; 81001; 83735; 84145; 85007; 85027; 87040; 87086; 93005; 96360; 96361; 97116; 97161; 97166; 97530; C1887; G0378; G0379; J7042; Q9967; 86301; A6539

== ENCOUNTER 2017-06-12 14:56 | Inpatient (IN) | payer BC ==
[2017-06-12] MEDS ORDERED: 0.9 % SODIUM CHLORIDE 10 ML DISP.SYRIN. IV (16:00)
[2017-06-12 16:09] LABS: ADD MAN DIFF? NO
[2017-06-12 16:11] LABS: BASO # 0.1 x10^3/uL (0.0-0.2); BASO % 1 % (0-3); EOS # 0.2 x10^3/uL (0.0-0.7); EOS % 3 % (0-3); HEMATOCRIT 36.2 % (36.0-47.0); HEMOGLOBIN 11.9 g/dL (12.0-15.5); LYMPH # 2.4 x10^3/uL (1.0-4.8); LYMPH % 39 % (24-48); MEAN CORPUSCULAR HEMOGLOBIN 30 pg (25-35); MEAN CORPUSCULAR HGB CONC 33 g/dL (31-37); MEAN CORPUSCULAR VOLUME 92 fL (79-100); MONO # 0.6 x10^3/uL (0.0-1.1); MONO % 10 % (0-9); NEUT # 2.9 x10^3uL (1.8-7.7); NEUT % 47 % (31-73); PLATELET COUNT 228 x10^3/uL (140-400); RED BLOOD COUNT 3.91 x10^6/uL (3.50-5.40); RED CELL DISTRIBUTION WIDTH 13.9 % (11.5-14.5); WHITE BLOOD COUNT 6.1 x10^3/uL (4.0-11.0)
[2017-06-12 16:30] LABS: ANION GAP 12 (6-14); BLOOD UREA NITROGEN 11 mg/dL (7-20); CALCIUM 9.5 mg/dL (8.5-10.1); CARBON DIOXIDE 25 mmol/L (21-32); CHLORIDE 104 mmol/L (98-107); CREATININE 1.3 mg/dL (0.6-1.0); GFR 39.9; GLUCOSE 103 mg/dL (70-99); POTASSIUM 3.6 mmol/L (3.5-5.1); SODIUM 141 mmol/L (136-145)
[2017-06-12 16:36] LABS: ALBUMIN 3.6 g/dL (3.4-5.0); ALK PHOS 156 U/L (46-116); ALT (SGPT) 16 U/L (14-59); AST (SGOT) 11 U/L (15-37); DIRECT BILIRUBIN < 0.1 mg/dL (0.0-0.2); LIPASE 119 U/L (73-393); MAGNESIUM 1.8 mg/dL (1.8-2.4); TOTAL BILIRUBIN 0.3 mg/dL (0.2-1.0); TOTAL PROTEIN 7.1 g/dL (6.4-8.2)
[2017-06-12 16:39] LABS: TROPONINI < 0.017 ng/mL (0.000-0.055)
[2017-06-12 16:45] LABS: THYROID STIM HORMONE (TSH) 1.076 uIU/mL (0.358-3.74)
[2017-06-12 16:53] LABS: CKMB MASS < 0.5 ng/mL (0.0-3.6); CREATINE KINASE 24 U/L (26-192)
[2017-06-12 16:53] LABS: NT-PRO BNP 120 pg/mL (0-449)
[2017-06-12] MEDS: ASPIRIN CHEWABLE 81 MG TABLET. PO (17:27)
[2017-06-12] MEDS: IV NORMAL SALINE 1000ML BAG 1,000 ML IV ×2 (17:29→22:10)
[2017-06-12] MEDS ORDERED: ONDANSETRON PF 4 MG/2 ML VIAL. IV (18:15)
[2017-06-12] MEDS ORDERED: ACETAMINOPHEN 325 MG TABLET. PO ×2 (18:15→20:45)
[2017-06-12 18:35] LABS: BILIRUBIN,URINE NEGATIVE (NEG); CLARITY,URINE CLEAR; COLOR,URINE YELLOW; GLUCOSE,URINE NEGATIVE (NEG); NITRITE,URINE NEGATIVE (NEG); PROTEIN,URINE NEGATIVE (NEG-TRACE); UROBILINOGEN,URINE 0.2 mg/dL (0.2 mg/dL)
[2017-06-12 18:52] LABS: BACTERIA,URINE 0 /HPF (0-FEW); RBC,URINE 0 /HPF (0-2); SQUAMOUS EPITHELIAL CELL,UR OCC /LPF; WBC,URINE OCC /HPF (0-4)
[2017-06-12] MEDS: METOPROLOL TART IMMED RELEASE 25 MG TABLET. PO (22:11)
[2017-06-12 22:22] LABS: TROPONINI < 0.017 ng/mL (0.000-0.055)
[2017-06-13 01:57] LABS: TROPONINI < 0.017 ng/mL (0.000-0.055)
[2017-06-13] MEDS: REGADENOSON 0.4 MG/5 ML DISP.SYRIN. IV (10:24)
[2017-06-13] MEDS: LOSARTAN POTASSIUM 50 MG TABLET. PO (11:01)
[2017-06-13] MEDS: METOPROLOL TART IMMED RELEASE 25 MG TABLET. PO (11:01)
[2017-06-13] MEDS: amLODIPine BESYLATE 5 MG TABLET PO (11:01)
[2017-06-13] MEDS: IV NORMAL SALINE 1000ML BAG 1,000 ML IV (11:50)
== END 2017-06-13 16:26 | disposition home or self-care (01) | DRG 313 ==
LOC: ER 14:56 → 5 SOUTH 18:04
DX: R07.89 Other chest pain (principal); I25.10 Atherosclerotic heart disease of native coronary artery without angina pectoris; M06.9 Rheumatoid arthritis, unspecified; M41.9 Scoliosis, unspecified; N18.3 Chronic kidney disease, stage 3 (moderate); K21.9 Gastro-esophageal reflux disease without esophagitis; E78.5 Hyperlipidemia, unspecified; I12.9 Hypertensive chronic kidney disease with stage 1 through stage 4 chronic kidney disease, or unspecified chronic kidney disease; I25.2 Old myocardial infarction; Z79.899 Other long term (current) drug therapy; Z90.710 Acquired absence of both cervix and uterus; Z88.6 Allergy status to analgesic agent; Z88.4 Allergy status to anesthetic agent; Z88.1 Allergy status to other antibiotic agents; Z88.2 Allergy status to sulfonamides; Z88.8 Allergy status to other drugs, medicaments and biological substances; Z86.73 Personal history of transient ischemic attack (TIA), and cerebral infarction without residual deficits
CPT/HCPCS: 36415; 70450; 71045; 78452; 80048; 80076; 81001; 82553; 83690; 83735; 83880; 84443; 84484; 85025; 87086; 93005; 93017; 96360; 96374; 96375; 96376; 99285; 99285-25; A9500; J2785; J7030

== ENCOUNTER → 2018-04-01 | Outpatient (CLI) | payer BC ==
[2017-06-13 11:01] VITALS: BP 136/60
[~2018-04-01] MED LIST changes: -AMLO5TAB2 PO; +AMLO5TAB7 PO; +LOSA-73 PO; -LOSA50TA6 PO
--- NOTE | 2018-04-01 11:44 | RAD ---
Cervical spine, 5 views, 04/01/2018: HISTORY: Neck pain There are moderate hypertrophic degenerative changes involving multiple facet joints bilaterally. There is mild to moderate disc space narrowing and spurring at C5-6 and C6-7. The combination of findings is causing mild to moderate foraminal narrowing bilaterally at these 2 levels. No recent fracture or subluxation is evident. No prevertebral soft tissue swelling is seen. Calcific plaquing at the right carotid bifurcation. IMPRESSION: 1. Moderate multilevel degenerative change, worst at the C5-6 and C6-7 levels. 2. No acute bony abnormality is detected. Electronically signed by: Bong Lewis MD (04/01/2018 11:40 AM) [facility]
== END | disposition home or self-care (01) ==
LOC: RAD 08:16
PROVIDERS: ATTEND Internal Medicine
DX: M47.812 Spondylosis without myelopathy or radiculopathy, cervical region (principal); M48.02 Spinal stenosis, cervical region
CPT/HCPCS: 72040

== ENCOUNTER → 2019-01-07 | Outpatient (CLI) | payer BC ==
[2017-06-13 11:01] VITALS: BP 136/60
[~2019-01-07] MED LIST changes: +AMLO5TAB10 PO; -AMLO5TAB7 PO; -PANT40TA3 PO; +PANT40TA77 PO
--- NOTE | 2019-01-07 15:19 | CARD ---
MR#: [id number] Date of Study: 01/07/2019 Ordering Physician: CAMILLA MENDEZ, Referring Physician: CAMILLA MENDEZ, Tech: Sheila Medel [facility] APPROVED REPORT EXAM: Two-dimensional and M-mode echocardiogram with Doppler and color Doppler. Other Information Quality : AverageHR: 60bpm Rhythm : NSR INDICATION Cardiomyopathy 2D DIMENSIONS RVDd2.5 (2.9-3.5cm)Left Atrium(2D)3.9 (1.6-4.0cm) IVSd0.8 (0.7-1.1cm)Aortic Root(2D)2.4 (2.0-3.7cm) LVDd3.5 (3.9-5.9cm)LVOT Diameter1.9 (1.8-2.4cm) PWd0.8 (0.7-1.1cm)LVDs2.3 (2.5-4.0cm) FS (%) 35.2 %SV33.3 ml Aortic Valve AoV Peak Manuel.104.5cm/sAoV VTI24.1cm AO Peak GR.4.4mmHgLVOT Peak Manuel.74.7cm/s LVOT VTI 17.54cmAO Mean GR.3mmHg BRYANT (VMAX)1.44fk1SCG (VTI)2.02cm2 Mitral Valve MV E Sblhrqyc46.1cm/sMV DECEL [id number] MV A Cnszstji16.7cm/sMV PLG70sv E/A Ratio0.8MVA (PHT)3.53cm2 Pulmonary Valve PV Peak Ipoeopco18.6cm/sPV Peak Grad.3mmHg Pulmonary Vein S1 Senvkpfp28.6cm/sD2 Uglngxsb17.3cm/s PVa [id number] LEFT VENTRICLE The left ventricle is normal size. There is normal left ventricular wall thickness. The left ventricu lar systolic function is normal and the ejection fraction is within normal range. The Ejection Fracti on is 55-60%. There is normal LV segmental wall motion. Transmitral Doppler flow pattern is Grade I-a bnormal relaxation pattern. RIGHT VENTRICLE The right ventricle is normal size. There is normal right ventricular wall thickness. The right ventr icular systolic function is normal. ATRIA The left atrium size is normal. The right atrium size is normal. The interatrial septum is intact wit h no evidence for an atrial septal defect or patent foramen ovale as noted on 2-D or Doppler imaging. AORTIC VALVE The aortic valve is normal in structure and function. The aortic valve is trileaflet. Doppler and Col or Flow revealed no significant aortic regurgitation. There is no significant aortic valvular stenosi s. MITRAL VALVE The mitral valve is normal in structure and function. There is no evidence of mitral valve prolapse. There is no mitral valve stenosis. Doppler and Color-flow revealed trace to mild mitral regurgitation . TRICUSPID VALVE The tricuspid valve is normal in structure and function. Doppler and Color Flow revealed trace tricus pid regurgitation. There is no tricuspid valve prolapse or vegetation. There is no tricuspid valve st enosis. PULMONIC VALVE The pulmonic valve is not well visualized. GREAT VESSELS The aortic root is normal in size. The ascending aorta is normal in size. The IVC is normal in size a nd collapses >50% with inspiration. PERICARDIAL EFFUSION There is no evidence of significant pericardial effusion. Critical Notification Critical Value: No <Conclusion> The left ventricle is normal size. The left ventricular systolic function is normal and the ejection fraction is within normal range. The Ejection Fraction is 55-60%. There is no significant aortic valvular stenosis. Doppler and Color Flow revealed no significant aortic regurgitation. Doppler and Color-flow revealed trace to mild mitral regurgitation. Doppler and Color Flow revealed trace tricuspid regurgitation. Signed by : Camilla Mendez MD Electronically Approved : 01/07/2019 15:19:15
== END | disposition home or self-care (01) ==
LOC: ECHO 13:12
PROVIDERS: ATTEND Internal Medicine Cardiovascular Disease
DX: I34.0 Nonrheumatic mitral (valve) insufficiency (principal); I42.9 Cardiomyopathy, unspecified
CPT/HCPCS: 93306

== ENCOUNTER 2019-03-01 20:28 | Observation (INO) | payer BC ==
[~2019-03-01] VITALS: Ht 149.9 cm; Wt 62.3 kg
[2019-03-01 20:51] LABS: BASO # 0.1 x10^3/uL (0.0-0.2); BASO % 1 % (0-3); EOS # 0.3 x10^3/uL (0.0-0.7); EOS % 3 % (0-3); HEMATOCRIT 36.6 % (36.0-47.0); HEMOGLOBIN 12.2 g/dL (12.0-15.5); LYMPH % 36 % (24-48); MEAN CORPUSCULAR HEMOGLOBIN 30 pg (25-35); MEAN CORPUSCULAR HGB CONC 33 g/dL (31-37); MEAN CORPUSCULAR VOLUME 91 fL (79-100); MONO # 0.7 x10^3/uL (0.0-1.1); MONO % 9 % (0-9); NEUT # 4.3 x10^3/uL (1.8-7.7); NEUT % 51 % (31-73); PLATELET COUNT 225 x10^3/uL (140-400); RED BLOOD COUNT 4.04 x10^6/uL (3.50-5.40); RED CELL DISTRIBUTION WIDTH 14.7 % (11.5-14.5); WHITE BLOOD COUNT 8.5 x10^3/uL (4.0-11.0)
[2019-03-01 21:01] LABS: CREATININE 1.6 mg/dL (0.6-1.0); GFR 31.3; POTASSIUM 4.1 mmol/L (3.5-5.1)
[2019-03-01 21:04] LABS: ALBUMIN/GLOBULIN RATIO 1.2 (1.0-1.7); MAGNESIUM 1.9 mg/dL (1.8-2.4); TOTAL BILIRUBIN 0.3 mg/dL (0.2-1.0); TOTAL PROTEIN 7.3 g/dL (6.4-8.2)
--- NOTE | 2019-03-01 21:38 | PHYS DOC ---
Past Medical History Past Medical History: CAD, High Cholesterol, Hypertension, MS, Stroke Past Surgical History: Hysterectomy, Other Additional Past Surgical Histo: sinus surgery Alcohol Use: None Drug Use: None Adult General Chief Complaint Chief Complaint: SYNCOPE HPI HPI Patient is a 78 year old female, accompanied by her restorationism friends, who presents to the emergency department after suffering a syncopal episode while sitting at [employer] practice this evening. Patient's friend states that she was seated during [employer] practice when all of a sudden she turned pale and slumped over for a period lasting less than 5 seconds. When the patient came to she stated that her chest felt tight. Patient denies any palpitations, nausea, vomiting, diarrhea, abdominal pain, fever, lower extremity swelling, or cough. She states that it feels like her heart is beating slow. Prior to the syncopal episode patient states she was feeling like her chest was tight and like it was hard to breathe so she sat down in the chair. She reports that the next thing she remembers is people around her when she was lying down. Friends deny any fall or head injury. Patient currently denies any pain, vision changes, nausea, or shortness of breath. Review of Systems Review of Systems Constitutional: Denies fever or chills [] Eyes: Denies change in visual acuity, redness, or eye pain [] HENT: Denies nasal congestion or sore throat [] Respiratory: See history of present illness Cardiovascular: No additional information not addressed in HPI [] GI: Denies abdominal pain, nausea, vomiting, bloody stools or diarrhea [] : Denies dysuria or hematuria [] Musculoskeletal: Denies back pain or joint pain [] Integument: Denies rash or skin lesions [] Neurologic: Denies focal weakness or sensory changes; reports frontal headache at this time Endocrine: Denies polyuria or polydipsia [] Complete systems were reviewed and found to be within normal limits, except as documented in this note. Allergies Allergies Allergies Coded Allergies Type Severity Reaction Last Updated Verified Cephalosporins Allergy Intermediate Hives 10/22/13 Yes Penicillins Allergy Intermediate 06/13/17 Yes Sulfa (Sulfonamide Antibiotics) Allergy Intermediate 06/13/17 Yes atorvastatin Allergy Intermediate 06/13/17 Yes cephalexin Allergy Intermediate 10/22/13 Yes diltiazem Allergy Intermediate 06/13/17 Yes doxycycline Allergy Intermediate 06/13/17 Yes erythromycin base Allergy Intermediate 06/13/17 Yes ezetimibe Allergy Intermediate 06/13/17 Yes levofloxacin Allergy Intermediate 06/13/17 Yes lisinopril Allergy Intermediate 10/22/13 Yes olmesartan Allergy Intermediate 06/12/17 Yes pantoprazole Allergy Intermediate 06/13/17 Yes Physical Exam Physical Exam Constitutional: Well developed, well nourished, no acute distress, non-toxic appearance. [] HENT: Normocephalic, atraumatic, bilateral external ears normal, oropharynx moist, no oral exudates, nose normal. [] Eyes: PERRLA, EOMI, conjunctiva normal, no discharge. [] Neck: Normal range of motion, no stridor. [] Cardiovascular:Heart rate regular rhythm Lungs & Thorax: Bilateral breath sounds clear to auscultation, Respirations even and unlabored, no retractions, no respiratory distress Abdomen: Bowel sounds normal, soft, no tenderness, no masses, no pulsatile masses. [] Skin: Warm, dry, no erythema, no rash. [] Back: No tenderness Extremities: No cyanosis, no clubbing, ROM intact, no edema. [] Neurologic: Alert and oriented X 3, normal motor function, normal sensory function, no focal deficits noted. [] Psychologic: Affect normal, judgement normal, mood normal. [] Current Patient Data Vital Signs Vital Signs Date Time Temp Pulse Resp B/P (MAP) Pulse Ox O2 Delivery O2 Flow Rate FiO2 03/01/19 22:05 68 18 125/64 (84) 98 Room Air 03/01/19 20:29 97.7 97.7 Lab Values Laboratory Tests Test 03/01/19 20:40 03/01/19 22:25 White Blood Count 8.5 x10^3/uL (4.0-11.0) Red Blood Count 4.04 x10^6/uL (3.50-5.40) Hemoglobin 12.2 g/dL (12.0-15.5) Hematocrit 36.6 % (36.0-47.0) Mean Corpuscular Volume 91 fL (79-100) Mean Corpuscular Hemoglobin 30 pg (25-35) Mean Corpuscular Hemoglobin Concent 33 g/dL (31-37) Red Cell Distribution Width 14.7 % (11.5-14.5) H Platelet Count 225 x10^3/uL (140-400) Neutrophils (%) (Auto) 51 % (31-73) Lymphocytes (%) (Auto) 36 % (24-48) Monocytes (%) (Auto) 9 % (0-9) Eosinophils (%) (Auto) 3 % (0-3) Basophils (%) (Auto) 1 % (0-3) Neutrophils # (Auto) 4.3 x10^3/uL (1.8-7.7) Lymphocytes # (Auto) 3.0 x10^3/uL (1.0-4.8) Monocytes # (Auto) 0.7 x10^3/uL (0.0-1.1) Eosinophils # (Auto) 0.3 x10^3/uL (0.0-0.7) Basophils # (Auto) 0.1 x10^3/uL (0.0-0.2) Sodium Level 139 mmol/L (136-145) Potassium Level 4.1 mmol/L (3.5-5.1) Chloride Level 101 mmol/L (98-107) Carbon Dioxide Level 24 mmol/L (21-32) Anion Gap 14 (6-14) Blood Urea Nitrogen 14 mg/dL (7-20) Creatinine 1.6 mg/dL (0.6-1.0) H Estimated GFR (Cockcroft-Gault) 31.3 BUN/Creatinine Ratio 9 (6-20) Glucose Level 107 mg/dL (70-99) H Lactic Acid Level 1.3 mmol/L (0.4-2.0) Calcium Level 10.0 mg/dL (8.5-10.1) Magnesium Level 1.9 mg/dL (1.8-2.4) Total Bilirubin 0.3 mg/dL (0.2-1.0) Aspartate Amino Transferase (AST) 12 U/L (15-37) L Alanine Aminotransferase (ALT) 13 U/L (14-59) L Alkaline Phosphatase 144 U/L (46-116) H Creatine Kinase 47 U/L (26-192) Creatine Kinase MB (Mass) < 0.5 ng/mL (0.0-3.6) Creatine Kinase MB Relative Index % (0-4) Troponin I Quantitative < 0.017 ng/mL (0.000-0.055) AY-Ivo-W-Type Natriuretic Peptide 116 pg/mL (0-449) Total Protein 7.3 g/dL (6.4-8.2) Albumin 4.0 g/dL (3.4-5.0) Albumin/Globulin Ratio 1.2 (1.0-1.7) Urine Collection Type Unknown Urine Color Yellow Urine Clarity Clear Urine pH 6.0 Urine Specific Nicolaus 1.010 Urine Protein Negative mg/dL (NEG-TRACE) Urine Glucose (UA) Negative mg/dL (NEG) Urine Ketones (Stick) Negative mg/dL (NEG) Urine Blood Negative (NEG) Urine Nitrite Negative (NEG) Urine Bilirubin Negative (NEG) Urine Urobilinogen Dipstick 0.2 mg/dL (0.2 mg/dL) Urine Leukocyte Esterase Large (NEG) Urine RBC 0 /HPF (0-2) Urine WBC 11-20 /HPF (0-4) Urine Squamous Epithelial Cells Few /LPF Urine Bacteria Few /HPF (0-FEW) Laboratory Tests 03/01/19 20:40 Laboratory Tests 03/01/19 20:40 EKG EKG 2037- SR rate 64, no STEMI read by Dr. Carey [] Radiology/Procedures Radiology/Procedures CXR no acute findings read by Dr. Carey [] PROCEDURE: CHEST AP ONLY EXAM: CHEST 1 VIEW History: Shortness of breath COMPARISON: None available. TECHNIQUE: Single portable radiograph of the chest FINDINGS: The cardiac silhouette is unremarkable. Minimal bibasilar lung atelectasis. The costophrenic sulci are clear and well demarcated. IMPRESSION: Minimal bibasilar lung atelectasis. Course & Med Decision Making Course & Med Decision Making Pertinent Labs and Imaging studies reviewed. (See chart for details) Diagnosis: syncopal episode CBC is unremarkable, CMP revealed creatinine of 1.6, glucose 107, alkaline phosphatase 144, CK is normal, CK-MB normal, CK-MB index also normal troponin less than 0.017, BNP 116; UA is concerning for UTI with large amount of leuk esterase and 11-21 white blood cells however patient declines any antibiotics states that she is allergic to every antibiotic. 2148- Spoke with Dr. Estrella who is the admitting physician, and care was assumed following discussion of patient. Will have floor meds resumed and consult cardiology. Patient's vital signs table patient remains afebrile, appears nontoxic, respirations even and unlabored. Patient will be admitted to the med/tele floor. [] Dragon Disclaimer Dragon Disclaimer This electronic medical record was generated, in whole or in part, using a voice recognition dictation system. Departure Departure Impression: Primary Impression: Syncope Disposition: 09 ADMITTED INPATIENT Admitting Physician: Miri Estrella Condition: STABLE Referrals: MIRI ESTRELLA MD (PCP) Problem Qualifiers Primary Impression: Syncope Syncope type: unspecified Qualified Codes: R55 - Syncope and collapse ELLIOTT ROMAN PCB DESIGN ENGINEER Mar 01, 2019 21:38
[2019-03-01 21:41] LABS: CREATINE KINASE 47 U/L (26-192)
[2019-03-01 22:35] LABS: BILIRUBIN,URINE NEGATIVE (NEG); CLARITY,URINE CLEAR; COLOR,URINE YELLOW; NITRITE,URINE NEGATIVE (NEG); PROTEIN,URINE NEGATIVE (NEG-TRACE); UROBILINOGEN,URINE 0.2 mg/dL (0.2 mg/dL)
[2019-03-01 22:46] LABS: RBC,URINE 0 /HPF (0-2)
[2019-03-01 22:47] LABS: BACTERIA,URINE FEW /HPF (0-FEW); SQUAMOUS EPITHELIAL CELL,UR FEW /LPF
--- NOTE | 2019-03-01 23:00 | NUR ---
The patient, KANNAN BALDWIN, 78 y/o, F admitted by MIRI MADRIGAL MD, was given written information regarding hospital policies, unit procedures and contact persons. Patient arrived via ED gurney assisted by ED staff member. Valuables were checked and noted. patient is currently laying in bed watching TV. Patient denies any needs at this time. This RN will continue to monitor this patient.
[2019-03-01 23:41] VITALS: BP 133/50
--- NOTE | 2019-03-01 23:49 | RAD ---
EXAM: CHEST 1 VIEW History: Shortness of breath COMPARISON: None available. TECHNIQUE: Single portable radiograph of the chest FINDINGS: The cardiac silhouette is unremarkable. Minimal bibasilar lung atelectasis. The costophrenic sulci are clear and well demarcated. IMPRESSION: Minimal bibasilar lung atelectasis. Electronically signed by: Arslan Siegel MD (03/01/2019 11:46 PM) [facility]
[2019-03-02] VITALS (8 sets, daily range): BP systolic 97–149; BP diastolic 39–70
--- NOTE | 2019-03-02 06:47 | EKG ---
[facility] [address] [place] [address] Test Date: 2019-03-01 Test Time: 20:38:16 Pat Name: KANNAN BALDWIN Department: Room: 675 1 Gender: F Linen Manager: : 1940 Requested By: ELLIOTT ROMAN Order Number: [id number] Reading MD: Ovidio Coronado MD Measurements Intervals [place] Rate: 63 P: PA: QRS: 5 QRSD: 76 T: 1 QT: 412 QTc: 429 Interpretive Statements SR NON-SPECIFIC ST/T CHANGES Electronically Signed On 03-02-2019 15:11:30 PEDIATRIC CARE COORDINATOR by Ovidio Coronado MD
[2019-03-02] MEDS ORDERED: NITROGLYCERIN SUBLINGUAL 0.4 MG BOTTLE OF 25. SL PRN (10:15)
[2019-03-02] MEDS ORDERED: ACETAMINOPHEN 325 MG TABLET. PO PRN (10:15)
--- NOTE | 2019-03-02 10:23 | PDOC ---
Provider Note Provider Note history and physical dictated # [id number] MIRI MADRIGAL MD Mar 02, 2019 10:23
--- NOTE | 2019-03-02 10:47 | HP ---
ADMIT DATE: 03/02/2019 LOCATION: Room-675. HISTORY OF PRESENT ILLNESS: The patient is a 78-year-old white female with history of hypertension and apparent coronary artery disease, chronic kidney disease stage 3, who was admitted to [facility] through Emergency Room on 03/01/2019 with a syncopal episode and chest pain. She apparently was in a choir practice at [employer] and she had some chest pressure, which lasted about 5 minutes and she was standing up at the time, sat down and then had a brief syncopal episode for 5 seconds as people witnessed it. Then she came to, noted to be cold and clammy before the syncopal episode. The patient came to and felt better. She did have some chest discomfort when she woke up and that has since resolved. She denies any exertional chest pain in the last month. She did have an echocardiogram done on 01/07/2019, which showed a preserved left ventricular ejection fraction and heart valves were okay. She had an EKG, which showed sinus rhythm. On telemetry, she also has sinus rhythm. She is admitted for further evaluation of her syncopal episode and chest pain. ALLERGIES AND INTOLERANCES: ARE NUMEROUS, KEFLEX, PENICILLIN, SULFA, ATORVASTATIN, DILTIAZEM, DOXYCYCLINE, ERYTHROMYCIN, ZETIA, LEVAQUIN, LISINOPRIL, BENICAR, AND PROTONIX. MEDICATIONS: Include metoprolol tartrate 25 mg b.i.d., losartan 100 mg every day, amlodipine 5 mg every day, nitroglycerin 0.4 mg sublingual p.r.n. PAST MEDICAL HISTORY: Significant for cataract extraction, tonsillectomy, hysterectomy, esophageal dilatation, hypertension, coronary artery disease, chronic kidney disease stage 3, lumbar spondylosis, cerebral aneurysms that are stable, gastroesophageal reflux disease. Apparently, she has had 2 myocardial infarctions many years ago she states. SOCIAL HISTORY: She does not drink alcohol nor does she smoke cigarettes. FAMILY HISTORY: Noncontributory. REVIEW OF SYSTEMS: GENERAL: She denies any fever, chills or sweats in the last 3 days. CARDIOVASCULAR: She had chest pain. PULMONARY: No cough or shortness of breath. GASTROINTESTINAL: No nausea or vomiting. ENDOCRINE: No diabetes mellitus. SKIN: No rashes. The rest of systems reviewed are negative except as stated in history of present illness. PHYSICAL EXAMINATION: VITAL SIGNS: Temperature 97.9 degrees, apical pulse is regular at 78, respiratory rate 18, blood pressure 114/56, oxygen saturation 99% on room air. HEENT: Eyes: Gaze is conjugate. Extraocular muscles are intact. Mouth: Tongue is midline. She wears upper dentures. NECK: No cervical lymphadenopathy or thyroid enlargement. HEART: Reveals an S1, S2. There is no S3 or murmur. LUNGS: Clear. ABDOMEN: Soft with no hepatosplenomegaly, masses, or tenderness. EXTREMITIES: Lower extremities without edema. SKIN: No rashes. NEUROLOGIC: She is coherent without any focal weakness in arms or legs. REVIEW OF LABORATORY TESTS: White count 8.5; hemoglobin 12.2; platelet count 325,000; 51 polys; and 36 lymphocytes. Sodium 139, potassium 4.1, chloride 101, total CO2 is 24, BUN 14, creatinine 1.6 and the liver function tests were normal. Troponin level negative x 1; get another troponin level today or every 8 hours x 2. CPK 47. ProBNP 116. Albumin 4.0. The urinalysis showed 11-20 white cells and 0 red blood cells. Electrocardiogram was read as atrial fibrillation, but I believe it is sinus rhythm with some baseline artifact. No acute abnormality. ASSESSMENT: 1. Syncopal episode. 2. Chest pain. 3. Suspected coronary artery disease from her history. 4. Hypertension. 5. Chronic kidney disease stage 3. PLAN: To consult Dr. Dobson she says, who is her sleeve setter safety stitch. We will get serial cardiac enzymes. We will probably hold off on echocardiogram since she just had one about a month ago, but we will defer that to the sleeve setter safety stitch and also defer any stress test that she will need to be evaluated also for a stress test. We will continue with telemetry, check orthostatic blood pressure. We will discontinue amlodipine, to stop blood pressure is 114. Check a lipid profile tomorrow. MIRI MADRIGAL MD DR: NICOLE/alexandre JOB#: [id number] / [id number]
[2019-03-02] MEDS: METOPROLOL TART IMMED RELEASE 25 MG TABLET. PO SCH ×2 (12:38→20:53)
[2019-03-02] MEDS: LOSARTAN POTASSIUM 50 MG TABLET. PO SCH (12:38)
--- NOTE | 2019-03-02 13:57 | NUR ---
SW following pt for dc planning. Chart reviewed and discussed with RN. Pt lives at home alone. SW will be available as needed.
--- NOTE | 2019-03-02 18:34 | PDOC2 ---
CARDIOLOGY CONSULT NOTE CHEIF COMPLAINT: Lightheaded and dizzy HPI: 78-year-old very pleasant woman who was admitted to the hospital today after an episode of syncope. 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 The patient does not recall the exact loss of consciousness. Denies any current chest pain, dyspnea, orthopnea or PND. She's otherwise remaining very active. No palpitations or preceding prodromal symptoms. PMHX: 1. Hypertension 2. Cardio myopathy 3. Dyslipidemia 4. Chronic kidney disease Recent testing including a echocardiogram in 2019, stress test in 2018 have been unremarkable. SOCHX: No alcohol, tobacco or illicit drug use FAMHX: Noncontributory CURRENT MEDS: Current Medications Medications (Trade) Dose Ordered Sig/Darren Route PRN Reason Start Time Stop Time Status Last Admin Dose Admin Metoprolol Tartrate (Lopressor) 25 mg BID PO 03/02/19 11:00 03/02/19 12:38 Losartan Potassium (Cozaar) 100 mg DAILY PO 03/02/19 11:00 03/02/19 12:38 ALLERGIES: Allergies Coded Allergies Type Severity Reaction Last Updated Verified Cephalosporins Allergy Intermediate Hives 10/22/13 Yes Penicillins Allergy Intermediate 06/13/17 Yes Sulfa (Sulfonamide Antibiotics) Allergy Intermediate 06/13/17 Yes atorvastatin Allergy Intermediate 06/13/17 Yes cephalexin Allergy Intermediate 10/22/13 Yes diltiazem Allergy Intermediate 06/13/17 Yes doxycycline Allergy Intermediate 06/13/17 Yes erythromycin base Allergy Intermediate 06/13/17 Yes ezetimibe Allergy Intermediate 06/13/17 Yes levofloxacin Allergy Intermediate 06/13/17 Yes lisinopril Allergy Intermediate 10/22/13 Yes olmesartan Allergy Intermediate 06/12/17 Yes pantoprazole Allergy Intermediate 06/13/17 Yes ROS: Negative for 10 out of 14 systems reviewed unless otherwise mentioned above in history of present illness PHYSICAL EXAM: Vital Signs/I&O: Vital Signs Date Time Temp Pulse Resp B/P (MAP) Pulse Ox O2 Delivery O2 Flow Rate FiO2 03/02/19 15:43 97.7 68 20 138/70 (92) 94 97.7 03/02/19 08:20 Room Air I & O 0 03/01/19 03/01/19 03/02/19 15:00 23:00 07:00 Intake Total 0 ml Balance 0 ml Physical Exam: GEN.: No apparent distress. Alert and oriented. HEENT: Head is normocephalic, atraumatic NECK: Supple. LUNGS: Clear to auscultation. HEART: RRR, S1, S2 present. Peripheral pulses intact ABDOMEN: Soft, nontender. Positive bowel sounds. EXTREMITIES: Without any cyanosis. NEUROLOGIC: Normal speech, normal tone PSYCHIATRIC: Normal affect, normal mood. SKIN: No ulcerations DIAGNOSTIC TESTING: Labs are unremarkable. EKG is unremarkable. No obvious abnormalities on telemetry Lab Laboratory Tests Test 03/01/19 20:40 03/01/19 22:25 White Blood Count 8.5 x10^3/uL (4.0-11.0) Red Blood Count 4.04 x10^6/uL (3.50-5.40) Hemoglobin 12.2 g/dL (12.0-15.5) Hematocrit 36.6 % (36.0-47.0) Mean Corpuscular Volume 91 fL (79-100) Mean Corpuscular Hemoglobin 30 pg (25-35) Mean Corpuscular Hemoglobin Concent 33 g/dL (31-37) Red Cell Distribution Width 14.7 % (11.5-14.5) H Platelet Count 225 x10^3/uL (140-400) Neutrophils (%) (Auto) 51 % (31-73) Lymphocytes (%) (Auto) 36 % (24-48) Monocytes (%) (Auto) 9 % (0-9) Eosinophils (%) (Auto) 3 % (0-3) Basophils (%) (Auto) 1 % (0-3) Neutrophils # (Auto) 4.3 x10^3/uL (1.8-7.7) Lymphocytes # (Auto) 3.0 x10^3/uL (1.0-4.8) Monocytes # (Auto) 0.7 x10^3/uL (0.0-1.1) Eosinophils # (Auto) 0.3 x10^3/uL (0.0-0.7) Basophils # (Auto) 0.1 x10^3/uL (0.0-0.2) Sodium Level 139 mmol/L (136-145) Potassium Level 4.1 mmol/L (3.5-5.1) Chloride Level 101 mmol/L (98-107) Carbon Dioxide Level 24 mmol/L (21-32) Anion Gap 14 (6-14) Blood Urea Nitrogen 14 mg/dL (7-20) Creatinine 1.6 mg/dL (0.6-1.0) H Estimated GFR (Cockcroft-Gault) 31.3 BUN/Creatinine Ratio 9 (6-20) Glucose Level 107 mg/dL (70-99) H Lactic Acid Level 1.3 mmol/L (0.4-2.0) Calcium Level 10.0 mg/dL (8.5-10.1) Total Bilirubin 0.3 mg/dL (0.2-1.0) Aspartate Amino Transf (AST/SGOT) 12 U/L (15-37) L Alkaline Phosphatase 144 U/L (46-116) H Creatine Kinase 47 U/L (26-192) Creatine Kinase MB (Mass) < 0.5 ng/mL (0.0-3.6) Creatine Kinase MB Relative Index % (0-4) Total Protein 7.3 g/dL (6.4-8.2) Albumin 4.0 g/dL (3.4-5.0) Albumin/Globulin Ratio 1.2 (1.0-1.7) Urine Collection Type Unknown Urine Color Yellow Urine Clarity Clear Urine pH 6.0 Urine Specific [place] 1.010 Urine Protein Negative mg/dL (NEG-TRACE) Urine Glucose (UA) Negative mg/dL (NEG) Urine Ketones (Stick) Negative mg/dL (NEG) Urine Blood Negative (NEG) Urine Nitrite Negative (NEG) Urine Bilirubin Negative (NEG) Urine Urobilinogen Dipstick 0.2 mg/dL (0.2 mg/dL) Urine Leukocyte Esterase Large (NEG) Urine RBC 0 /HPF (0-2) Urine WBC 11-20 /HPF (0-4) Urine Squamous Epithelial Cells Few /LPF Urine Bacteria Few /HPF (0-FEW) Laboratory Tests 03/01/19 20:40 ASSESSMENT: 1. Syncope of unclear etiology: Differential diagnosis is broad but no obvious evidence of orthostasis but suspect vasovagal episode. Cannot rule out underlying arrhythmias. Recent testing including a stress/echo in [id number] are reassuring. PLAN: 1. Plan for outpatient event recording. 2. Agree with decreasing her antihypertensives. Supportive care for now. Close follow-up at the office. Thank you for this consultation RAFITA SERRANO MD Mar 02, 2019 18:34
[2019-03-03 03:42] VITALS: BP 131/77
[2019-03-03 03:43] VITALS: BP 141/75
[2019-03-03 03:44] VITALS: BP 164/65
[2019-03-03 07:30] VITALS: BP 134/43
--- NOTE | 2019-03-03 10:16 | PDOC ---
PROGRESS NOTES Subjective Subjective feels well. denies syncope or chest pain since admission. walked around okay. sinus bradycardia in 40s last night and will d/c metoprolol. bp is okay. Objective Objective Vital Signs Date Time Temp Pulse Resp B/P (MAP) Pulse Ox O2 Delivery O2 Flow Rate FiO2 03/03/19 07:30 97.8 61 14 134/43 (73) 98 Room Air 97.8 Intake and Output 03/03/19 07:00 Intake Total 200 ml Balance 200 ml Intake Oral 200 ml # Voids 2 Physical Exam Abdomen: Soft Heart: Regular rate, Normal S1, Normal S2 Extremities: No edema General: Alert HEENT: Atraumatic Lungs: Clear to auscultation Neuro: Normal speech Psych/Mental Status: Mental status NL Skin: No rashes Assessment Assessment 1. Syncopal episode. 2. Chest pain. 3. Suspected coronary artery disease from her history. 4. Hypertension. 5. Chronic kidney disease stage 3. sinus bradycardia Plan Plan of Care d/c metoprolol out patient registered nurse cardiac telemetry dismiss today Comment Review of Relevant I have reviewed the following items rajinder (where applicable) has been applied. Labs Laboratory Tests Test 03/01/19 20:40 03/01/19 22:25 03/02/19 14:07 03/02/19 21:45 White Blood Count 8.5 x10^3/uL (4.0-11.0) Red Blood Count 4.04 x10^6/uL (3.50-5.40) Hemoglobin 12.2 g/dL (12.0-15.5) Hematocrit 36.6 % (36.0-47.0) Mean Corpuscular Volume 91 fL (79-100) Mean Corpuscular Hemoglobin 30 pg (25-35) Mean Corpuscular Hemoglobin Concent 33 g/dL (31-37) Red Cell Distribution Width 14.7 % (11.5-14.5) Platelet Count 225 x10^3/uL (140-400) Neutrophils (%) (Auto) 51 % (31-73) Lymphocytes (%) (Auto) 36 % (24-48) Monocytes (%) (Auto) 9 % (0-9) Eosinophils (%) (Auto) 3 % (0-3) Basophils (%) (Auto) 1 % (0-3) Neutrophils # (Auto) 4.3 x10^3/uL (1.8-7.7) Lymphocytes # (Auto) 3.0 x10^3/uL (1.0-4.8) Monocytes # (Auto) 0.7 x10^3/uL (0.0-1.1) Eosinophils # (Auto) 0.3 x10^3/uL (0.0-0.7) Basophils # (Auto) 0.1 x10^3/uL (0.0-0.2) Sodium Level 139 mmol/L (136-145) Potassium Level 4.1 mmol/L (3.5-5.1) Chloride Level 101 mmol/L (98-107) Carbon Dioxide Level 24 mmol/L (21-32) Anion Gap 14 (6-14) Blood Urea Nitrogen 14 mg/dL (7-20) Creatinine 1.6 mg/dL (0.6-1.0) Estimated GFR (Cockcroft-Gault) 31.3 BUN/Creatinine Ratio 9 (6-20) Glucose Level 107 mg/dL (70-99) Lactic Acid Level 1.3 mmol/L (0.4-2.0) Calcium Level 10.0 mg/dL (8.5-10.1) Magnesium Level 1.9 mg/dL (1.8-2.4) Total Bilirubin 0.3 mg/dL (0.2-1.0) Aspartate Amino Transf (AST/SGOT) 12 U/L (15-37) Alanine Aminotransferase (ALT/SGPT) 13 U/L (14-59) Alkaline Phosphatase 144 U/L (46-116) Creatine Kinase 47 U/L (26-192) Creatine Kinase MB (Mass) < 0.5 ng/mL (0.0-3.6) Creatine Kinase MB Relative Index % (0-4) Troponin I Quantitative < 0.017 ng/mL (0.000-0.055) < 0.017 ng/mL (0.000-0.055) < 0.017 ng/mL (0.000-0.055) EU-Tjh-Z-Type Natriuretic Peptide 116 pg/mL (0-449) Total Protein 7.3 g/dL (6.4-8.2) Albumin 4.0 g/dL (3.4-5.0) Albumin/Globulin Ratio 1.2 (1.0-1.7) Urine Collection Type Unknown Urine Color Yellow Urine Clarity Clear Urine pH 6.0 Urine Specific [place] 1.010 Urine Protein Negative mg/dL (NEG-TRACE) Urine Glucose (UA) Negative mg/dL (NEG) Urine Ketones (Stick) Negative mg/dL (NEG) Urine Blood Negative (NEG) Urine Nitrite Negative (NEG) Urine Bilirubin Negative (NEG) Urine Urobilinogen Dipstick 0.2 mg/dL (0.2 mg/dL) Urine Leukocyte Esterase Large (NEG) Urine RBC 0 /HPF (0-2) Urine WBC 11-20 /HPF (0-4) Urine Squamous Epithelial Cells Few /LPF Urine Bacteria Few /HPF (0-FEW) Test 03/03/19 03:50 Triglycerides Level 112 mg/dL (0-150) Cholesterol Level 164 mg/dL (0-200) LDL Cholesterol, Calculated 109 mg/dL (0-100) VLDL Cholesterol, Calculated 22 mg/dL (0-40) Non-HDL Cholesterol Calculated 131 mg/dL (0-129) HDL Cholesterol 33 mg/dL (40-60) Cholesterol/HDL Ratio 5.0 Laboratory Tests Test 03/02/19 14:07 03/02/19 21:45 03/03/19 03:50 Troponin I Quantitative < 0.017 ng/mL (0.000-0.055) < 0.017 ng/mL (0.000-0.055) Triglycerides Level 112 mg/dL (0-150) Cholesterol Level 164 mg/dL (0-200) LDL Cholesterol, Calculated 109 mg/dL (0-100) VLDL Cholesterol, Calculated 22 mg/dL (0-40) Non-HDL Cholesterol Calculated 131 mg/dL (0-129) HDL Cholesterol 33 mg/dL (40-60) Cholesterol/HDL Ratio 5.0 Medications Current Medications Metoprolol Tartrate (Lopressor) 25 mg BID PO Last administered on 03/02/19at 20:53; Start 03/02/19 at 11:00 Losartan Potassium (Cozaar) 100 mg DAILY PO Last administered on 03/02/19at 12:38; Start 03/02/19 at 11:00 Nitroglycerin (Nitrostat) 0.4 mg PRN Q5MIN PRN SL CHEST PAIN; Start 03/02/19 at 10:15 Acetaminophen (Tylenol) 650 mg PRN Q6HRS PRN PO MILD PAIN / TEMP; Start 03/02/19 at 10:15 Active Scripts Active Cozaar (Losartan Potassium) 50 Mg Tablet 100 Mg PO DAILY 30 Days Reported Amlodipine Besylate 5 Mg Tablet 5 Mg PO DAILY Metoprolol Tartrate 25 Mg Tablet 25 Mg PO BID Acetaminophen 325 Mg Tablet 650 Mg PO PRN Q4HRS PRN Acetaminophen 325 Mg Tablet 325 Mg PO PRN Q4HRS PRN Vitals/I & O Vital Sign - Last 24 Hours 03/02/19 03/02/19 03/02/19 03/02/19 11:35 11:36 11:37 12:38 Temp 97.6 97.6 Pulse 89 70 74 74 Resp 18 B/P (MAP) 116/49 (71) 149/61 (90) 141/65 (90) 141/65 Pulse Ox 98 03/02/19 03/02/19 03/02/19 03/02/19 12:38 15:43 19:05 20:08 Temp 97.7 98.6 97.7 98.6 Pulse 74 68 73 Resp 20 16 B/P (MAP) 141/65 138/70 (92) 118/51 (73) Pulse Ox 94 96 O2 Delivery Room Air Room Air 03/02/19 03/02/19 03/03/19 03/03/19 20:53 23:44 03:42 03:43 Temp 98.5 97.8 98.5 97.8 Pulse 73 68 64 66 Resp 16 16 B/P (MAP) 118/51 97/39 (58) 131/77 (95) 141/75 (97) Pulse Ox 94 97 O2 Delivery Room Air Room Air 03/03/19 03/03/19 03:44 07:30 Temp 97.8 97.8 Pulse 69 61 Resp 14 B/P (MAP) 164/65 (98) 134/43 (73) Pulse Ox 98 O2 Delivery Room Air Intake and Output 03/02/19 03/02/19 03/03/19 15:00 23:00 07:00 Intake Total 200 ml Balance 200 ml MIRI MADRIGAL MD Mar 03, 2019 10:16
[2019-03-03] MEDS ORDERED: NITR0.4T24 SL (10:18)
--- NOTE | 2019-03-03 10:19 | DISCH ---
DISCHARGE INSTRUCTIONS Condition on Discharge Condition on Discharge: Stable Activity After Discharge Activity Instructions for Disc: Activity as tolerated Lifting Instructions after Dis: Do not lift >10 pounds Driving Instructions after Dis: Do not drive today Weight Bearing Status after Di: As tolerated Diet after Discharge Diet after Discharge: Cardiac Diet Texture: Regular Liquid Texture: Thin Liquid Swallowing Supervision: None needed Checks after Discharge Checks after discharge: Check blood press - daily, Check your Temp as needed Contacting the DR. after DC Call your doctor for: If your condition worsens Follow-Up Follow up with: dr. madrigal next week Follow Up With: dr. Dobson for [place] [employer] officer MIRI MADRIGAL MD Mar 03, 2019 10:19
--- NOTE | 2019-03-03 10:24 | PDOC ---
Provider Note Provider Note discharge summary dictated # [id number] MIRI MADRIGAL MD Mar 03, 2019 10:24
[2019-03-03] MEDS: LOSARTAN POTASSIUM 50 MG TABLET. PO SCH (10:26)
--- NOTE | 2019-03-03 10:54 | DS ---
DATE OF DISCHARGE: 03/03/2019 RELEASE MANAGER: Ovidio Coronado M.D. FINAL DIAGNOSES: 1. Syncopal episode, possibly secondary to orthostatic hypotension. 2. Chest pain, possibly secondary to costochondritis. 3. Hypertension. 4. Chronic kidney disease stage 3. 5. Coronary artery disease per the patient. HOSPITAL COURSE: The patient is a 78-year-old white female with a history of hypertension and possibly coronary artery disease, with chronic kidney disease stage 3, admitted to [facility] through Emergency Room on 03/01/2019 with a syncopal episode and chest pain. She apparently was at a [employer] practice at [employer] and had some chest pressure, lasted about 5 minutes and she was very weak standing up, so she sat down and was pale and then had a syncopal episode for 5 seconds and came to. She was cold and clammy and then she felt better. Her chest discomfort eventually resolved. She went to the [facility] Emergency Room where she was subsequently admitted on 03/02/2019. Cardiac enzymes were negative. EKG showed no acute change. She had an echocardiogram on 01/07/2019, which showed a preserved left ventricular ejection fraction. On her heart monitor, she had sinus bradycardia with a rate in the 40s. Her metoprolol, which was 25 mg b.i.d. will be discontinued today and also her amlodipine was discontinued on admission. It was felt she might have had some vasovagal orthostatic drop in her blood pressure. Her blood pressure was under good control and she will be on losartan 100 mg every day, which she took prior to admission. She was seen by Dr. Coronado in consultation, who agreed with discontinuing amlodipine and also discontinue the metoprolol for the time being if it is okay with the face painter. When I went into the room, the patient told me that the face painter had saw her already and recommended stopping that. He also recommended an outpatient heart monitor, so therefore, she will be dismissed today on losartan 100 mg every day, Tylenol 325 mg 1-2 every 4 hours p.r.n., nitroglycerin 0.4 mg sublingual p.r.n. Make an appointment to see Dr. Estrella in the office next week. She was told to discontinue amlodipine and if the face painter agrees to discontinue the metoprolol, we will discontinue that too and the face painter will set up outpatient cardiac monitoring. She apparently had a stress test also in [address] Coronado's note and he did not recommend any further stress testing at this time. She had no further chest pain or syncope while she was here in the hospital. MIRI ESTRELLA MD DR: NICOLE/alexandre JOB#: [id number] / [id number]
[2019-03-03 11:00] VITALS: BP 89/68
[2019-03-03 11:37] VITALS: BP 121/49
--- NOTE | 2019-03-03 12:36 | PDOC ---
CARDIO Progress Notes Date and Time Date of Service 03/03/2019 Time of Evaluation 1000 Subjective Subjective: No Chest Pain, No shortness of breath, No Palpitations, Other (wants to go home) Vitals Vitals Vital Signs Date Time Temp Pulse Resp B/P (MAP) Pulse Ox O2 Delivery O2 Flow Rate FiO2 03/03/19 11:37 121/49 (73) 03/03/19 11:00 98.4 65 15 98 Room Air 98.4 Weight Weight [ ] Input and Output Intake and Output Intake and Output 03/03/19 07:00 Intake Total 200 ml Balance 200 ml Intake Oral 200 ml # Voids 2 Laboratory Labs Laboratory Tests Test 03/02/19 14:07 03/02/19 21:45 03/03/19 03:50 Troponin I Quantitative < 0.017 ng/mL (0.000-0.055) < 0.017 ng/mL (0.000-0.055) Triglycerides Level 112 mg/dL (0-150) Cholesterol Level 164 mg/dL (0-200) LDL Cholesterol, Calculated 109 mg/dL (0-100) VLDL Cholesterol, Calculated 22 mg/dL (0-40) Non-HDL Cholesterol Calculated 131 mg/dL (0-129) HDL Cholesterol 33 mg/dL (40-60) Cholesterol/HDL Ratio 5.0 Physical Exam HEENT: Neck Supple W Full Motion Chest: Symmetric LUNGS: Clear to Auscultation Heart: S1S2, RRR (SR/SB) Abdomen: Soft N/T Extremities: No Edema, No Calf Tenderness Neurology: alert, oriented, follow commands Assessment Assessment 1. Syncope: suspect vasovagal associated with singing that at times would require some hyperventilation. No arrhythmias nor orthostasis 2. Asymptomatic SB: no pauses, lowest in the 40s possibly associated with BB use 3. CAD: remote with no known intervention. CP free. Recent EF and WM nml. 4. HTN: controlled 5. Multiple med allergies including ACEi/ARB and statin 6. CKD: unknown stage. 7. HLP: LDL not on goal Recommendations 1. DC BB. Will arrange for outpt event monitor 2. Will verify allergies as noted above and will place on meds accordingly so far no reaction noted with losartan use. 3. Follow up in office. TRESSA BOYD APRN Mar 03, 2019 12:36
[2019-03-03 13:12] LABS: CALCIUM 9.3 mg/dL (8.5-10.1); CREATININE 1.5 mg/dL (0.6-1.0); GFR 33.8; POTASSIUM 4.4 mmol/L (3.5-5.1)
--- NOTE | 2019-03-03 14:48 | NUR ---
Discharge instructions given to patient regarding medications and follow up appointments. Pt will be going to Dr. Dobson's office for a heart monitor and make a follow up appointment after discharge. Pt verbalizes understanding.
== END 2019-03-03 14:40 | disposition home or self-care (01) ==
LOC: ER 20:28 → INTOOBSV 22:25 → 6 SOUTH 22:25
PROVIDERS: ADMIT Internal Medicine; ATTEND Internal Medicine
DX: R55 Syncope and collapse (principal); R07.89 Other chest pain; I12.9 Hypertensive chronic kidney disease with stage 1 through stage 4 chronic kidney disease, or unspecified chronic kidney disease; N18.3 Chronic kidney disease, stage 3 (moderate); I25.2 Old myocardial infarction; Z98.49 Cataract extraction status, unspecified eye; Z90.710 Acquired absence of both cervix and uterus
CPT/HCPCS: 36415; 71045; 80048; 80053; 80061; 81001; 82553; 83605; 83735; 83880; 84443; 84484; 85025; 87086; 93005; 97161; 97165; 99284; G0378; G0379; 99285-25

== ENCOUNTER 2020-04-19 16:37 | Emergency (ER) | payer BC, MEDICARE ==
[~2020-04-19] VITALS: Ht 149.9 cm; Wt 59.0 kg
[~2020-04-19 16:37] MED LIST changes: +AMLO-186 PO; -AMLO5TAB10 PO; -MECL12.52 PO; +MECL12.574 PO; +NITR0.4T24 SL
[2020-04-19 16:50] VITALS: BP 151/100
--- NOTE | 2020-04-19 17:42 | RAD ---
CT Head W/O Contrast: History: Reason: FALL, PAIN / Comparison: June 12, 2017 Axial images were obtained without contrast. The reaves and white matter appears normal and symmetrical for the patients age. There is no mass effe ct, extraaxial fluid collections or hydrocephalus. There is no gross bleed. There is no focal loss of reaves-white matter distinction to suggest acute ischemia, i.e. stroke. There is mild motion artifac t. Maxillary sinus disease was seen previously. Impression: No acute findings. End impression CT C-Spine without contrast: Clinical History: Reason: FALL, PAIN / Spl. Instructions: / History: Technique: Axial helical images of the cervical spine were obtained without contrast, axial coronal and sagittal reconstruction was performed. Findings: There is no loss of vertebral body stature. There is no prevertebral soft tissue swelling. There is mild degenerative anterolisthesis of C4 on C5 and C5 on C6. There is straightening of the normal cer vical lordosis which can be positional or could be chronic. The C1-C2 relationship is normal. The vis ualized osseous structures appear normal. Evaluation of the central canal is limited without contras t. There is multiple posterior disc bulges resulting in flattening of the thecal sac. There does not appear to be gross flattening of the cervical cord. There is marked narrowing of multiple neuroforame n. There is a retropharyngeal course of the carotid arteries. Impression: No acute findings. Clinical correlation suggested. PQRS Compliance Statement: One or more of the following individualized dose reduction techniques were utilized for this examinat ion: 1. Automated exposure control 2. Adjustment of the mA and/or kV according to patient size 3. Use of iterative reconstruction technique Electronically signed by: Kofi Lopez III, MD (04/19/2020 5:39 PM) [facility]
--- NOTE | 2020-04-19 18:10 | PHYS DOC ---
Past Medical History Past Medical History: CAD, High Cholesterol, Hypertension, WI, Stroke Past Surgical History: Hysterectomy, Other Additional Past Surgical Histo: sinus surgery Smoking Status: Never Smoker Alcohol Use: None Drug Use: None General Adult EDM: Chief Complaint: ANKLE PROBLEM HPI: HPI: Patient is a 79 year old female who presents with was walking and slipped and fell in her yard. She states that she did hit the top of the head, complains of left knee pain, left tib-fib pain, left ankle pain, left foot pain. States that she took Tylenol prior to arrival. She states that she does not have any pain in that she moves the extremity. Patient does have 2-3+ swelling at the left ankle with left ankle tenderness. Patient states she did not lose consciousness and she is not on any blood thinners. Patient has a history of WI, hypertension, high cholesterol, CAD, stroke, hysterectomy. Review of Systems: Review of Systems: Constitutional: Denies fever or chills. [] Eyes: Denies change in visual acuity. [] HENT: Denies nasal congestion or sore throat. [] Respiratory: Denies cough or shortness of breath. [] Cardiovascular: Denies chest pain or edema. [] GI: Denies abdominal pain, nausea, vomiting, bloody stools or diarrhea. [] : Denies dysuria. [] Musculoskeletal: Denies back pain. + Left knee,+ left ankle joint pain. [] Integument: Denies rash. [] Neurologic: + headache, denies focal weakness or sensory changes. [] Endocrine: Denies polyuria or polydipsia. [] Lymphatic: Denies swollen glands. [] Psychiatric: Denies depression or anxiety. [] Heart Score: Risk Factors: Risk Factors: DM, Current or recent (<one month) smoker, HTN, HLP, family history of CAD, obesity. Risk Scores: Score 0 - 3: 2.5% MACE over next 6 weeks - Discharge Home Score 4 - 6: 20.3% MACE over next 6 weeks - Admit for Clinical Observation Score 7 - 10: 72.7% MACE over next 6 weeks - Early Invasive Strategies Allergies: Allergies: Allergies Coded Allergies Type Severity Reaction Last Updated Verified Cephalosporins Allergy Intermediate Hives 10/22/13 Yes Penicillins Allergy Intermediate 06/13/17 Yes Sulfa (Sulfonamide Antibiotics) Allergy Intermediate 06/13/17 Yes atorvastatin Allergy Intermediate 06/13/17 Yes cephalexin Allergy Intermediate 10/22/13 Yes diltiazem Allergy Intermediate 06/13/17 Yes doxycycline Allergy Intermediate 06/13/17 Yes erythromycin base Allergy Intermediate 06/13/17 Yes ezetimibe Allergy Intermediate 06/13/17 Yes levofloxacin Allergy Intermediate 06/13/17 Yes lisinopril Allergy Intermediate 10/22/13 Yes olmesartan Allergy Intermediate 06/12/17 Yes pantoprazole Allergy Intermediate 06/13/17 Yes Physical Exam: PE: Constitutional: Well developed, well nourished, no acute distress, non-toxic appearance. [] HENT: Normocephalic, atraumatic, bilateral external ears normal, oropharynx moist, no oral exudates, nose normal. [] Eyes: PERRLA, EOMI, conjunctiva normal, no discharge. [] Neck: Normal range of motion, no tenderness, supple, no stridor. [] Cardiovascular:Heart rate regular rhythm, no murmur [] Lungs & Thorax: Bilateral breath sounds clear to auscultation [] Abdomen: Bowel sounds normal, soft, no tenderness, no masses, no pulsatile masses. [] Skin: Warm, dry, no erythema, no rash. [] Back: No tenderness, no CVA tenderness. [] Extremities: Left lateral ankle tenderness, no cyanosis, no clubbing, left knee and left ankle ROM intact but limited, left ankle 3+ edema. [] Neurologic: Alert and oriented X 3, normal motor function, normal sensory function, no focal deficits noted. [] Psychologic: Affect normal, judgement normal, mood normal. [] EKG: EKG: [] Radiology/Procedures: Radiology/Procedures: [] Impression: [facility] [address] [place] [address] IMAGING REPORT Signed PATIENT: KANNAN BALDWIN ACCOUNT: [id number] : 1940 LOCATION: ER AGE: 79 SEX: F EXAM STATUS: REG ER ORD. PHYSICIAN: TRENTON LAIRD APRN REASON: FALL, PAIN PROCEDURE: CT HEAD AND CERVICAL SPINE WO CT Head W/O Contrast: History: Reason: FALL, PAIN / Comparison: June 12, 2017 Axial images were obtained without contrast. The reaves and white matter appears normal and symmetrical for the patients age. There is no mass effect, extraaxial fluid collections or hydrocephalus. There is no gross bleed. There is no focal loss of reaves-white matter distinction to suggest acute ischemia, i.e. stroke. There is mild motion artifact. Maxillary sinus disease was seen previously. Impression: No acute findings. End impression CT C-Spine without contrast: Clinical History: Reason: FALL, PAIN / Spl. Instructions: / History: Technique: Axial helical images of the cervical spine were obtained without contrast, axial coronal and sagittal reconstruction was performed. Findings: There is no loss of vertebral body stature. There is no prevertebral soft tissue swelling. There is mild degenerative anterolisthesis of C4 on C5 and C5 on C6. There is straightening of the normal cervical lordosis which can be positional or could be chronic. The C1-C2 relationship is normal. The visualized osseous structures appear normal. Evaluation of the central canal is limited without contrast. There is multiple posterior disc bulges resulting in flattening of the thecal sac. There does not appear to be gross flattening of the cervical cord. There is marked narrowing of multiple neuroforamen. There is a retropharyngeal course of the carotid arteries. Impression: No acute findings. Clinical correlation suggested. PQRS Compliance Statement: One or more of the following individualized dose reduction techniques were utilized for this examination: 1. Automated exposure control 2. Adjustment of the mA and/or kV according to patient size 3. Use of iterative reconstruction technique Electronically signed by: Ricky Alexandre III, MD (04/19/2020 5:39 PM) [facility] DICTATED and SIGNED BY: RICKY ALEXANDRE III, MD DATE: 04/19/20 [id number] [facility] [address] [place], [place] [id number] IMAGING REPORT Signed PATIENT: KANNAN BALDWIN ACCOUNT: [id number] : 1940 LOCATION: ER AGE: 79 SEX: F EXAM STATUS: REG ER ORD. PHYSICIAN: TRENTON LAIRD APRN REASON: FALL , PAIN PROCEDURE: FOOT LEFT 3V Left foot 3 views: Reason for examination: Fell with pain. There is bony demineralization. No acute fracture or dislocation is seen. There are no lytic or blastic bone lesions. No abnormal periosteal reaction is seen. Joint spaces are maintained. IMPRESSION: No acute bony abnormality at the left foot. Left ankle 3 views: There is an oblique nondisplaced fracture at the lateral malleolus at the level of the ankle mortise. No other site of fracture or dislocation is seen. No lytic or blastic bone lesions are seen. No abnormal periosteal reaction is seen. There is soft tissue swelling around the ankle. IMPRESSION: Oblique nondisplaced fracture of the lateral malleolus. Left knee 3 views: No acute fracture or dislocation is seen. There is bony demineralization. There are no lytic or blastic bone lesions. No abnormal periosteal reaction is seen. Joint spaces are maintained. No joint effusion is evident. IMPRESSION: No acute bony abnormality at the left knee. Left tibia and fibula 2 views: Nondisplaced fracture is seen at the lateral malleolus. No other fracture or dislocation is evident. The bone density is demineralized. No lytic or blastic bone lesions are seen. No abnormal periosteal reaction is seen. IMPRESSION: Nondisplaced fracture at the lateral malleolus. Electronically signed by: Elsie Vela MD (04/19/2020 6:25 PM) [facility] DICTATED and SIGNED BY: ELSIE VELA MD DATE: 04/19/20 [id number] Course & Med Decision Making: Course & Med Decision Making Pertinent Labs and Imaging studies reviewed. (See chart for details) No joint laxities. Patient has limited range of motion at the knee due to pain with movement, limited range of motion at the left ankle due to swelling and pain. Pedal pulses strong and present. Cap refill less than 2 seconds. Skin pink warm and dry. No joint deformities seen. No lacerations or abrasions seen. Patient has no tenderness, bumps, bruises, abrasions or lacerations to the top of her head where she states that she hit her head. PERRLA. She denies any focal weaknesses. Patient is placed in a sugar tong and posterior splint. As I went into the room patient is upset because she has not gotten pain medicine yet. I had ordered tramadol for quite some time before but it was never given. However patient was educated that the splint could be painful and I have offered her some IV pain medication or even an IM shot of something stronger. She states that she does not want an IM shot and she does not want an IV. She does agree to a SQ shot of morphine. I have discontinued the tramadol she will be given morphine instead. I will send her home with tramadol. Patient states she is allergic to hydrocodone although it is not on her allergy list. I have told the patient we would add that to her allergy list. Splint assessment: Neurovascularly intact post splint replacement with good fit. Patient's extremity symptoms have stabilized well they have been evaluated in the department and are appropriate for outpatient follow-up. No evidence of compartment syndrome, neurologic injury, vascular injury, open joint, open fracture, tendon laceration, or foreign body. [] Dragon Disclaimer: Dragon Disclaimer: This electronic medical record was generated, in whole or in part, using a voice recognition dictation system. Departure Departure Impression: Primary Impression: Lateral malleolar fracture Qualified Codes: S82.65XA - Nondisplaced fracture of lateral malleolus of left fibula, initial encounter for closed fracture Disposition: 01 DC HOME SELF CARE/HOMELESS Condition: STABLE Referrals: MIRI MADRIGAL MD (PCP) LIAN VELASQUEZ MD Patient Instructions: Ankle Fracture with [facility]hab[facility] Additional Instructions: Follow-up with orthopedic doctor soon as possible. Take pain medication as prescribed. Use ice and elevation to help with pain and swelling. If you begin to feel too tight you can unwrap it and rewrap it [facility]. If you begin having numbness or the skin color changes to purple in the foot any return to the emergency room. Scripts Tramadol Hcl (TRAMADOL HCL) 50 Mg Tablet 50 MG PO Q6HRS PRN for PAIN, #12 TAB Prov: TRENTON LAIRD APRN 04/19/20 TRENTON LAIRD APRN Apr 19, 2020 18:10
[2020-04-19] MEDS ORDERED: traMADol 50 MG TABLET PO ONE (18:15)
--- NOTE | 2020-04-19 18:28 | RAD ---
Left foot 3 views: Reason for examination: Fell with pain. There is bony demineralization. No acute fracture or dislocation is seen. There are no lytic or blast ic bone lesions. No abnormal periosteal reaction is seen. Joint spaces are maintained. IMPRESSION: No acute bony abnormality at the left foot. Left ankle 3 views: There is an oblique nondisplaced fracture at the lateral malleolus at the level of the ankle mortise. No other site of fracture or dislocation is seen. No lytic or blastic bone lesions are seen. No abno rmal periosteal reaction is seen. There is soft tissue swelling around the ankle. IMPRESSION: Oblique nondisplaced fracture of the lateral malleolus. Left knee 3 views: No acute fracture or dislocation is seen. There is bony demineralization. There are no lytic or blast ic bone lesions. No abnormal periosteal reaction is seen. Joint spaces are maintained. No joint effus ion is evident. IMPRESSION: No acute bony abnormality at the left knee. Left tibia and fibula 2 views: Nondisplaced fracture is seen at the lateral malleolus. No other fracture or dislocation is evident. The bone density is demineralized. No lytic or blastic bone lesions are seen. No abnormal periosteal reaction is seen. IMPRESSION: Nondisplaced fracture at the lateral malleolus. Electronically signed by: Lauren Reece MD (04/19/2020 6:25 PM) [facility]
[2020-04-19] MEDS ORDERED: HYDR-2759 PO (18:34)
[2020-04-19] MEDS ORDERED: TRAM50TA PO (18:42)
[2020-04-19] MEDS ORDERED: MORPHINE SULFATE 2 MG/ML VIAL. SQ ONE (19:00)
== END 2020-04-19 19:38 | disposition home or self-care (01) ==
LOC: ER 16:37
DX: S82.65XA Nondisplaced fracture of lateral malleolus of left fibula, initial encounter for closed fracture (principal); M25.562 Pain in left knee; R51.9 Headache, unspecified; M54.2 Cervicalgia; E78.00 Pure hypercholesterolemia, unspecified; I10 Essential (primary) hypertension; I25.10 Atherosclerotic heart disease of native coronary artery without angina pectoris; I25.2 Old myocardial infarction; Z86.73 Personal history of transient ischemic attack (TIA), and cerebral infarction without residual deficits; Z90.710 Acquired absence of both cervix and uterus; Z88.0 Allergy status to penicillin; Z88.1 Allergy status to other antibiotic agents; Z88.2 Allergy status to sulfonamides; Z88.8 Allergy status to other drugs, medicaments and biological substances; W01.0XXA Fall on same level from slipping, tripping and stumbling without subsequent striking against object, initial encounter; Y93.01 Activity, walking, marching and hiking; Y92.096 Garden or yard of other non-institutional residence as the place of occurrence of the external cause; Y99.8 Other external cause status
CPT/HCPCS: 29515; 70450; 72125; 73562; 73590; 73610; 73630; 96372; 99285; J2270

== ENCOUNTER → 2021-03-16 | Outpatient (CLI) | payer MEDICARE ==
[~2021-03-16] MED LIST changes: +HYDR-2759 PO; -MECL12.574 PO; +MECL12.582 PO; +REGADENOSON 0.4 MG/5 ML DISP.SYRIN. IV ONE; +TRAM50TA PO
--- NOTE | 2021-03-16 16:13 | RAD ---
MR#: [id number] Date of Study: 03/16/2021 Ordering Physician: CAMILLA MENDEZ, Referring Physician: VELASQUEZ RILEY Tech: RAJAT Reynolds, ARRT (R) (N) APPROVED REPORT Test Type: Pharmacological Stress Nurse/Tech: Mikayla Grimaldo RN Test Indications: CAD Cardiac History: IN, HTN, CVA Medications: See Electronic Medical Record Medical History: See Electronic Medical Record Resting ECG: SR Resting Heart Rate: 66 bpm Resting Blood Pressure: 132/57mmHg Pretest Chest Pain: None Nurse/Tech Notes Lungs CTA, S1S2 Consent: The procedure was explained to the patient in lay terms. Informed consent was witnessed. Eliazar eout was entered into [employer]. History and Stress Test performed by LEVI Harris Pharm. Details Pharmacologic stress testing was performed using 0.4mg per 5ml of regadenoson given intravenously ove r 7-10 seconds. Stress Symptoms Dizziness POST EXERCISE Reason for Termination: Infusion complete Max HR: 101 bpm Max Blood Pressure: 151/55mmHg Blood Pressure response to exercise: Normal blood pressure response during stress. Heart Rate response to exercise: normal response Chest Pain: No. Arrhythmia: No. ST Change: No. INTERPRETATION Stress EKG Conclusion: The resting EKG shows a sinus rhythm and mild nonspecific ST segment changes. The stress EKG shows no significant changes from baseline. No EKG evidence of stress-induced ischemia. Imaging Protocol IMAGE PROTOCOL: Rest Tc-99m/stress Tc-99m 1 day Rest: Stress: Viability: Radiopharm.Tc99m KcpkmqkmbUl83p Sestamibi Sgph54dKt 31mCi Img Date 03/16/2021 03/16/2021 Inj-Img Weiv16oxy. 60min. Rest Admin Site:IV - Left AntecubitalAdministrator:RAJAT Reynolds, ARRT (R)(N) Stress Admin Site: IV - Left AntecubitalAdministrator: LEVI Harris STRESS DATA End Diast. Vol.22.0mlLVEDV index BSA15.0ml End Syst. Vol.1.0mlLVESV index BSA1.0ml Myocardial Mass56.0gEject. Lmddwjbo03.0% Stress Scores Regional WT0.00Summed WT0.00 Regional WM0.00Summed WM0.00 LV Perfusion The stress scans showed no significant defects. The rest scans showed no significant defects. Nuclear imaging shows no reversible ischemia or infarct. Wall Motion Normal left ventricular systolic function with an ejection fraction of greater than 70%. LV Perf. Quant 17 Seg. SSS0.00 17 Seg. SRS0.00 17 Seg. SDS0.00 Stress Defect Extent (% LAD)0.00Rest Defect Extent (% LAD)0.00Rev. Defect Extent (% LAD)0.00 Stress Defect Extent (% LCX) 0.00Rest Defect Extent (% LCX)0.00Rev. Defect Extent (% LCX)0.00 Stress Defect Extent (% RCA)0.00Rest Defect Extent (% RCA)0.00Rev. Defect Extent (% RCA)0.00 Stress Defect Extent (% DIMAS)0.00Rest Defect Extent (% DIMAS)0.00Rev. Defect Extent (% DIMAS)0.00 Conclusion 1. Mildly abnormal baseline EKG but no EKG evidence of stress-induced ischemia. 2. Nuclear imaging shows no reversible ischemia or infarct. 3. Normal left ventricular systolic function with an ejection fraction of greater than 70%. 4. Moderately low to low risk Lexiscan nuclear stress test. Signed by : Camilla Mendez MD Electronically Approved : 03/16/2021 16:12:32
== END ==
LOC: NM 11:16
PROVIDERS: ATTEND Internal Medicine Cardiovascular Disease
DX: R94.31 Abnormal electrocardiogram [ECG] [EKG] (principal); R07.9 Chest pain, unspecified
CPT/HCPCS: 78452; 93017; A9500; J2785